=== PATIENT | female | born 1945 | race Caucasian/White ===

== ENCOUNTER 2024-11-11 14:11 | Emergency (ER) | payer BC, SELFPAY ==
--- NOTE | ~2024-11-11 | XR_ITS ---
CLINICAL HISTORY: confusion 1 view chest x-ray Comparison: None Findings: There is increase of bilateral interstitial lung markings. Mild opacity of the left lung base. Normal size heart. There is calcification of the aortic arch. No acute fracture. IMPRESSION: Mild atelectasis/infiltrate of the left lung base. This document has been electronically signed by: Marco Orta MD on 11/11/2024 20:21:40
--- NOTE | 2024-11-11 14:16 | ED_ITS ---
HPI - General Adult General Chief complaint: Failure to Thrive Stated complaint: anxiety per ems Source: patient, EMS, RN notes reviewed and old records reviewed Mode of arrival: EMS Limitations: no limitations History of Present Illness ED Provider: Milady HPI narrative: Patient is a 79-year-old female with unknown past medical history presenting to the emergency department with complaint of severe anxiety since returning home from assisted living, unable to state where. Reports that she has been out of her medications but is unsure how to fill them. Tried calling [facility] but did not get any call back. States that she was under the impression that when she returned home she would have VNA services, states she has only had meals on wheels. Reports going outside to do yard work today which increased her anxiety. Feels she is unable to care for herself alone at home. Ambulates with walker at baseline. Denies suicidal or homicidal ideation, auditory or visual hallucinations. Denies any physical complaints. MD complaint: unable to care for self Onset (ago): day(s) Related Data Home Medications ?Medication ?Instructions ?Recorded ?Confirmed apixaban 5 mg tablet (Eliquis) 5 mg PO BID 11/11/24 11/12/24 aripiprazole 10 mg tablet 10 mg PO DAILY 11/11/24 11/12/24 atorvastatin 20 mg tablet 20 mg PO BEDTIME 11/11/24 11/12/24 digoxin 125 mcg (0.125 mg) tablet 125 mcg PO DAILY 11/11/24 11/12/24 diltiazem HCl 180 mg 360 mg PO DAILY 11/11/24 11/12/24 capsule,extended release 24 hr losartan 100 mg tablet 100 mg PO DAILY 11/11/24 11/12/24 pantoprazole 40 mg tablet,delayed 40 mg PO DAILY@0630 11/11/24 11/12/24 release acetaminophen 650 mg 1,300 mg PO BID PRN Pain 11/12/24 11/12/24 tablet,extended release melatonin 10 mg tablet 10 mg PO BEDTIME PRN Insomnia 11/12/24 11/12/24 Allergies Allergy/AdvReac Type Severity Reaction Status Date / Time insect venom [INSECT BITES] Allergy Unknown SWELLING Verified 11/11/24 14:25 Review of Systems 2 Review of Systems: As per HPI. Yes all other systems are reviewed and are negative Constitutional: Constitutional: Reports as per HPI Neurologic: Reports confusion Psychiatric: Psychiatric: Reports confusion ON LICENSE OF [facility] Social History Social History Alcohol intake: former Smoked in Last 30 Days: No Use of substances other than those prescribed or required for medical reasons: No Advance Directives: No Advance Directives Information Provided: Yes Physical Exam ED Vital Signs: Vital Signs - 24 hr 11/13/24 10:43 11/13/24 10:44 11/13/24 13:00 Temperature 97.6 F Pulse Rate 85 106 H Respiratory Rate 18 Blood Pressure 136/78 136/78 112/81 Pulse Oximetry 96 Oxygen Delivery Method Room Air 11/13/24 21:04 11/14/24 00:19 11/14/24 05:58 Temperature 97.6 F 97.6 F 98.0 F Pulse Rate 106 H 106 H 100 Respiratory Rate 16 16 16 Blood Pressure 117/59 L 117/59 L 107/57 L Pulse Oximetry 96 94 Oxygen Delivery Method Room Air Room Air BMI result Body Mass Index 30.0 Vital signs have been reviewed and appear to be correct. Blood pressure normal. Heart rate normal. Respiratory rate normal. Temperature normal. Oxygen saturation normal. Const General: cooperative, healthy appearing, no acute distress and confusion Orientation/consciousness: oriented to person, oriented to place, oriented to time, patient oriented x3 and confusion Limitations: altered mental status HENMT Head: Yes normocephalic and Yes atraumatic Ears: external ears normal General nose exam: Normal external nose present Face and sinus: Yes face symmetric Mouth: oropharynx normal and moist mucous membranes Throat: Yes uvula midline Eyes Pupils: Equal, round and reactive pupils present Neck Neck: Yes normal visual inspection and Yes supple Resp Effort & Inspection: normal respiratory effort and able to speak in complete sentences Auscultation: clear to auscultation bilaterally Cardio Rate: regular rate Rhythm: regular rhythm Heart sounds: S1 normal heart sound present and S2 normal heart sound present GI Palpation (GI): Soft to palpation and nontender Auscultation: normoactive bowel sounds General: Yes no CVA tenderness Back/Spine/Pelvis Back: no CVA tenderness Skin General skin exam: elasticity normal and turgor normal Neuro General: oriented to person, oriented to place, oriented to time, patient oriented x3, moves all extremities, no focal motor deficits, CN's II-XI intact bilaterally and confusion Cranial nerves: Yes Equal, round and reactive pupils present Extrem General: Yes full ROM, Yes no pedal edema and Yes no calf tenderness Psych Mental Status: mental status grossly normal Affect: normal affect Course Course Course Narrative: 11/14/24 09:34am Per Elly from , patient will be [place] [facility] [place] resumption of [facility]. Reevaluation(s) Reevaluation #1: Alexa Diaz PA-C ----> 2100 11/11/2024: Patient's UA was negative for any acute process. Patient's CXR showed a questionable infiltrate. Will start patient on Doxycycline for atypical coverage. Patient remains in observation pending physical therapy and case management consultations. Time: 21:00 Reevaluation #2: Dr. Jamarcus Arteaga's note at 22:06 hours: Patient was seen by case management. He was management is concerned that the patient has memory deficits and may not have competency to make decisions. The patient was at [facility] which was in assisted living program and she decided to leave this program and went back home. The patient's home and then cleaned out since she was hording. The patient has no family. The patient was 2 cell phones but can only call 911 with the cell phone since she was no cell phone policy. Patient initially came in complaining that she was not able to care for herself. Patient was waiting for a PT evaluation to determine if she needs acute rehab. I did order a psychiatry consult to help determine patient was competency while we are still trying sort out whether she needs rehab for physical therapy. Time: 22:06 Reevaluation #3: 11/12/2024 0631- should observation continued. No overnight events per nursing staff. Awaiting Psychiatry consultation to determine competency as well as PT eval. We will continue to monitor Additional Reevaluation(s): 11/13/24 0934-Physician observation continued. Uneventful night. Vital signs stable. No complaints from nursing overnight. Med reconciliation reviewed and done. Pending disposition. Will continue to monitor. Medications Administered Generic Name Dose Route Start Last Admin Trade Name Freq PRN Reason Stop Dose Admin Acetaminophen 650 mg 11/12/24 09:20 11/12/24 09:33 Acetaminophen 325 Mg Tablet PO 650 mg Q8H PRN Administration Pain, Mild 1-3,fever,headache Apixaban 5 mg 11/12/24 09:00 11/14/24 09:08 Apixaban 5 Mg Tablet PO 5 mg BID CHICA Administration Aripiprazole 10 mg 11/12/24 09:00 11/14/24 09:05 Aripiprazole 10 Mg Tablet PO 10 mg DAILY CHICA Administration Atorvastatin Calcium 20 mg 11/12/24 09:00 11/14/24 09:08 Atorvastatin Calcium 20 Mg Tablet PO 20 mg DAILY CHICA Administration Digoxin 0.125 mg 11/12/24 09:00 11/14/24 09:05 Digoxin 0.125 Mg Tablet PO 0.125 mg DAILY CHICA Administration Protocol Diltiazem HCl 180 mg 11/12/24 09:00 11/14/24 09:05 Diltiazem Hcl Cd 180 Mg Cap.Er.24h PO 180 mg DAILY CHICA Administration Protocol Doxycycline Monohydrate 100 mg 11/11/24 21:00 11/14/24 09:05 Doxycycline Monohydrate 100 Mg Capsule PO 100 mg BID CHICA Administration Losartan Potassium 100 mg 11/12/24 09:00 11/14/24 09:07 Losartan Potassium 50 Mg Tablet PO 100 mg DAILY [facility] Administration Protocol Melatonin 9 mg 11/12/24 12:45 11/13/24 20:57 Melatonin 3 Mg Tablet PO 9 mg BEDTIME PRN Administration Insomnia Omeprazole 20 mg 11/12/24 06:45 11/14/24 06:41 Omeprazole 20 Mg Capsule. PO 20 mg DAILY@0630 [facility] Administration Medical Decision Making Medical Decision Making [facility] Narrative: Patient is a 79-year-old female with unknown past medical history presenting to the emergency department with complaint of severe anxiety since returning home from assisted living, unable to state where. On exam patient is awake, A+Ox3, VS WNL, afebrile, normal neurological exam without focal deficits, physical exam findings as above. Given reported symptoms and physical exam findings, initial differential includes but is not limited to UTI, viral illness, electrolyte abnormality, failure to thrive. Labs notable for mild leukocytosis, elevated BUN with normal creatinine, mildly elevated LFTs. PT and case management consults ordered. UA and CXR pending. Patient placed on physician observation. Differential Diagnosis Differential Diagnoses: The differential diagnosis associated with the presentation includes as per [facility] Lab Data [facility] Lab Attestation statement: I reviewed the patient's lab results. as per [facility] 11/11/24 17:03 11/11/24 17:03 Labs: Lab Results 11/11/24 11/11/24 11/11/24 Range/Units 16:59 17:03 20:15 WBC 13.0 H (4.8-10.8) X10*3/uL RBC 4.64 (4.20-5.50) X10*6/uL Hgb 15.6 (12.0-16.0) g/dl Hct 43.7 (37.0-47.0) % MCV 94.2 (80.0-98.0) fL MCH 33.6 H (27.0-33.0) pg MCHC 35.7 H (31.0-35.0) g/dl RDW 12.8 (11.0-16.0) % Plt Count 188 (160-400) X10*3/uL MPV 10.2 (9.4-12.3) fL Immature Gran % (Auto) 0.5 H (0.0-0.4) % Neut % (Auto) 65.3 (45-73) % Lymph % (Auto) 24.3 (20-40) % [place] % (Auto) 8.0 (2-11) % Eos % (Auto) 1.3 (0-4) % Baso % (Auto) 0.6 (0-2) % Lymph # (Auto) 3.2 (1.2-4.9) X10*3/uL [place] # (Auto) 1.0 (0.1-1.2) X10*3/uL Eos # (Auto) 0.2 (0.0-0.4) X10*3/uL Baso # (Auto) 0.1 (0.0-0.2) X10*3/uL Abs Immat Gran (auto) 0.06 H (0.00-0.03) X10*3/uL Absolute Neuts (auto) 8.5 H (2.0-8.3) x10*3/uL Absolute Nucleated RBC 0.000 (0.0-0.012) X10*3/uL Nucleated RBC % (auto) 0.0 (0.0-0.2) /100WBC Sodium 143 (135-145) mmol/L Potassium 3.9 (3.3-5.1) mmol/L Chloride 105 (96-108) mmol/L Carbon Dioxide 27 (22-29) mmol/L Anion Gap 15 (12-20) BUN 24 H (9-16) mg/dL Creatinine 1.21 (0.5-1.4) mg/dL Estim Creat Clear Calc 38.4 Estimated GFR 43 Random Glucose 92 (60-115) mg/dL Calcium 9.7 (8.4-10.2) mg/dL Total Bilirubin 1.0 (0.0-1.0) mg/dL AST 70 H (5-31) U/L ALT 76 H (0-31) U/L Alkaline Phosphatase 94 (39-117) U/L Total Protein 7.5 (6.5-8.0) g/dL Albumin 4.3 (3.5-5.0) g/dL Urine Color Yellow Urine Appearance Clear Urine pH 5.5 (5.0-9.0) Ur Specific [place] 1.010 (1.005-1.025) Urine Protein 30 (1+) H (Neg-Trace) mg/dL Urine Glucose (UA) Negative (Negative) mg/dL Urine Ketones Negative (Negative) mg/dL Urine Blood Negative (Negative) Urine Nitrite Negative (Negative) Ur Leukocyte Esterase Negative (Negative) Urine RBC 0-2 (0-2) /HPF Urine WBC 0-5 (0-5) /HPF Ur Squamous Epith Cells 0-2 (0-2) /HPF Urine Bacteria None Seen (None Seen) Hyaline Casts 0-2 (0-2) /LPF Urine Opiates Screen Not Detected (Not Detect) Ur Buprenorphine Scrn Not Detected (Not Detect) ng/mL Ur Oxycodone Screen Not Detected (Not Detect) ng/mL Urine Methadone Screen Not Detected (Not Detect) ng/mL Urine Fentanyl Screen Not Detected (Not Detect) Ur Barbiturates Screen Not Detected (Not Detect) Ur Phencyclidine Scrn Not Detected (Not Detect) Ur Amphetamines Screen Not Detected (Not Detect) U Benzodiazepines Scrn Not Detected (Not Detect) Urine Cocaine Screen Not Detected (Not Detect) U Marijuana (THC) Screen Not Detected (Not Detect) Ethyl Alcohol < 10 mg/dL Influenza Type A (PCR) NEGATIVE (Negative) Influenza Type B (PCR) NEGATIVE (Negative) RSV RNA Qual (PCR) NEGATIVE (Negative) SARS-CoV-2 RNA (RT-PCR) NEGATIVE (Negative) External Record Review External record reviewed: Inpatient record, Office record and Outpatient record Discharge Plan Discharge Clinical Impression: Adult failure to thrive Patient Disposition: Home, Self-Care Additional Instructions: You are being discharged home with [facility]. Follow up with your primary care provider as needed. Return with any new or concerning symptoms. Prescriptions: No Action atorvastatin 20 mg tablet 20 mg PO BEDTIME diltiazem HCl 180 mg capsule,extended release 24hr 360 mg PO DAILY pantoprazole 40 mg tablet,delayed release (DR/EC) 40 mg PO DAILY@0630 digoxin 125 mcg (0.125 mg) tablet 125 mcg PO DAILY losartan 100 mg tablet 100 mg PO DAILY aripiprazole 10 mg tablet 10 mg PO DAILY Eliquis 5 mg tablet 5 mg PO BID acetaminophen [Tylenol Arthritis] 650 mg Tablet Extended Release 1,300 mg PO BID PRN (Reason: Pain) melatonin 10 mg Tablet 10 mg PO BEDTIME PRN (Reason: Insomnia) Referrals: [facility] [Outside] Print Language: Hungarian
[2024-11-11 14:22] VITALS: BP 126/60; BP 126/62; PULSE 68; PULSE 83; RESP 18; TEMP 36.6; O2SAT 100; O2SAT 95
--- OUTSIDE RECORDS SUMMARY | 2024-11-11 16:19 | XMS_ITS | Encounter Summary ---
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 verfication Social History Tobacco Use Types Packs/Day Years Used Date Smoking Tobacco: Never Smokeless Tobacco: Never Alcohol Use Standard Drinks/Week Comments No 0 (1 standard drink = 0.6 oz pur e alcohol) Comments Unknown Sex and Gender Information Value Date Recorded Sex Assigned at Not on file Legal Sex Female 1:53 PM EST Gender Identity Not on file Sexual Orientation Not on file documented as of this encounter Progress Notes * Tahira Duran - 09/19/2024 12:19 PM EST [place] calling to confirm dosage on the Metoprolol Tart 25 Mg 50 MG 1/2 tab daily increase is what they are asking about. Please confirm the dosage. documented in this encounter Plan of Treatment Not on file documented as of this encounter Visit Diagnoses Not on filedocumented in this encounter Care Teams Hog Dropper Relationship Specialty Start Date End Date Alan Shoemaker PA [address] [place], [place] [phone] PCP - General Internal Medicine 02/08/21 documented as of this encounter
--- OUTSIDE RECORDS SUMMARY | 2024-11-11 16:19 | XMS_ITS | Clinical Summary ---
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 01/07/20 24 Active diclofenac (VOLTAREN) 1 % topical gel Apply 4 g topically 4 times daily as needed for Other (arthritis pain). 11/02/19 24 Active lamoTRIgine (LaMICtal) 150 mg tablet Take 1 tablet (150 mg total) by mouth 1 (one) time each day. 08/11/20 23 Active busPIRone (BUSPAR) 15 mg tablet TAKE 1 TABLET BY MOUTH THREE TIMES DAILY 03/06/20 23 Active methylphenidat e (RITALIN) 5 mg tablet TAKE 2 TABLET BY MOUTH ONCE A DAY AND 1 TAB IN AFTERNOON NEEDED 06/09/20 22 Active EPINEPHrine (EpiPen 2-Dawson) 0.3 mg/0.3 mL injection Inject 1 Units as directed as needed for Other (anaphylaxis) . 04/12/20 21 Active aspirin 325 mg tablet Take 1 tablet (325 mg total) by mouth 1 (one) time each day. Active lamoTRIgine (LaMICtal) 200 mg tablet Take 200 mg by mouth daily. Active ondansetron (ZOFRAN) 4 mg tablet Take 1 tablet (4 mg total) by mouth every 8 (eight) hours if needed. 06/16/20 24 Active ARIPiprazole (ABILIFY) 10 mg tablet Take 1 tablet (10 mg total) by mouth 1 (one) time each day. 08/02/20 24 Active acetaminophen (Tylenol 8 Hour) 650 mg 8 hr tablet Take 2 tablets (1,300 mg total) by mouth 2 (two) times a day if needed for mild pain. Do not crush, chew, or split. 120 tablet 11 08/16/20 24 Active metoprolol tartrate (LOPRESSOR) 25 mg tablet Take 1 tablet (25 mg total) by mouth 2 (two) times a day. 180 tablet 09/08/19 25 Active melatonin 10 mg capsule Take 1 capsule (10 mg total) by mouth at bedtime as needed (insomnia). 30 capsule 09/08/19 25 Active atorvastatin (LIPITOR) 20 mg tablet Take 1 tablet (20 mg total) by mouth at bedtime. at bedtime. 90 tablet 09/08/19 25 Active digoxin (LANOXIN) 125 mcg (0.125 mg) tablet Take 1 tablet (125 mcg total) by mouth 1 (one) time each day. 90 tablet 09/08/19 25 Active dilTIAZem CD (CARDIZEM CD) 180 mg 24 hr capsule Take 2 capsules (360 mg total) by mouth 1 (one) time each day. 180 capsule 09/08/19 25 Active pantoprazole (PROTONIX) 40 mg EC tablet TAKE 1 TABLET BY MOUTH ONCE DAILY BEFORE BREAKFAST 30 tablet 10/20/19 25 Active Eliquis 5 mg tablet TAKE 1 TABLET BY MOUTH TWICE DAILY 60 tablet 10/20/19 25 Active losartan (COZAAR) 100 mg tablet TAKE 1 TABLET BY MOUTH DAILY. 30 tablet 10/20/19 25 Active pantoprazole (PROTONIX) 40 mg EC tablet Take 1 tablet (40 mg total) by mouth 1 (one) time each day before breakfast. 90 tablet 09/08/19 25 025 Discontinued Eliquis 5 mg tablet Take 1 tablet (5 mg total) by mouth 2 (two) times a day. 180 tablet 09/08/19 25 025 Discontinued losartan (COZAAR) 100 mg tablet Take 1 tablet (100 mg total) by mouth 1 (one) time each day. 90 tablet 09/08/19 25 025 Discontinued ciprofloxacin (CIPRO) 250 mg tablet Take 1 tablet (250 mg total) by mouth 2 (two) times a day for 5 days. 10 each 10/13/19 25 025 Active Problems Problem Noted Date Diagnosed Date Schizoaffective disorder 09/08/2024 Paroxysmal atrial fibrillation 09/08/2024 Weakness 09/08/2024 Obesity, unspecified 09/08/2024 Coronary artery disease due to lipid rich plaque 05/22/2023 Multiple thyroid nodules 05/13/2022 Carotid stenosis, asymptomatic, bilateral 2020 Overview (08/09/2024): 0-49% stenosis b/l internal carotid arteries Carotid atherosclerosis 04/12/2021 Retinal hemorrhage 11/17/2019 Osteoporosis 09/24/2018 Overview (08/09/2024): Started Fosamax July 2018 CKD (chronic kidney disease) stage 3, GFR 30-59 ml/min 07/21/2017 Elevated alkaline phosphatase level 08/23/2014 Overview (08/09/2024): Normal GGTP Dr. Colin 08/20 Plan for recheck in around 01/19 Incontinence of urine 08/10/2014 Overview (08/09/2024): Dr. Rosen Allergic rhinitis 05/30/2014 Fatty liver 05/30/2014 Overview (08/09/2024): Seen on usn 9/10 Trigger finger 05/30/2014 Overview (08/09/2024): 3rd left finger Vitamin D deficiency 05/30/2014 Bipolar disorder 05/05/2014 Depression 04/30/2014 DJD (degenerative joint disease) of knee 014 GERD (gastroesophageal reflux disease) 4 Overview (08/09/2024): 07/06/13 - upper GI with severe spontaneous GERD without esophageal stricture or mass HTN (hypertension) 04/30/2014 Hyperlipidemia 04/30/2014 Spinal stenosis 04/30/2014 Overview (08/09/2024): As per old records Dr. Alegria - 05/31/14 - osteoarthritis of knee and hip; low back pain; MRI than followup afterwards MRI lumbar spine - 06/05/14 - degenerative disc disease, central canal stenosis along with multilevel foraminal stenosis 06/27/14 - epidural steroid injection trial performed Encounters Date Type Department Care Team Description 11/04/2024 Telephone Adult Medicine [address] [phone] Alan Shoemaker PA faxed order (Faxed order received from [employer] A [id number] please sign and fax to [phone].) 11/03/2024 Billing Patient Not Present [address] [phone] Alan Shoemaker PA Schizoaffective disorder, unspecified type (CMS/HCC) (Primary Dx); Bipolar affective disorder, remission status unspecified (CMS/HCC); Paroxysmal atrial fibrillation (CMS/HCC); Primary hypertension; Obesity, unspecified class, unspecified obesity type, unspecified whether serious comorbidity present; Weakness 10/18/2024 9:45 AM EST Ancillary Procedure [facility] [address] [facility] [address] [place] [address] Carotid stenosis, asymptomatic, bilateral; Pure hypercholesterolemia; Routine general medical examination at a health care facility; Multiple thyroid nodules; Coronary artery disease due to lipid rich plaque; Carotid atherosclerosis, unspecified laterality; Osteoporosis, unspecified osteoporosis type, unspecified pathological fracture presence; Stage 3b chronic kidney disease (CKD) (CMS/HCC); Vitamin D deficiency; Primary hypertension; Bipolar affective disorder, remission status unspecified (CMS/HCC); Spinal stenosis of lumbar region without neurogenic claudication; Mixed hyperlipidemia; Depression, unspecified depression type; Fatty liver 10/11/2024 1:30 PM EST Office Visit Adult [address] [phone] Tomas Gruber MD Dysuria (Primary Dx); Urinary incontinence, unspecified type 09/26/[address] [phone] Alan Shoemaker PA LAB WORK 09/26/[address] [phone] Alan Shoemaker PA 09/19/[address] [phone] 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 09/08/2024 Billing Patient Not Present [address] [phone] Alan Shoemaker PA Schizoaffective disorder, unspecified type (CMS/HCC) (Primary Dx); Bipolar affective disorder, remission status unspecified (CMS/HCC); Paroxysmal atrial fibrillation (CMS/HCC); Primary hypertension; Weakness; Obesity, unspecified class, unspecified obesity type, unspecified whether serious comorbidity present 08/26/[address] [phone] [id number] 08/18/[address] [phone] Alan Shoemaker PA Medication Problem 08/16/2024 2:00 PM EST Office Visit Adult [address] [phone] Alan Shoemkaer PA Hospital discharge follow-up (Primary Dx); Sepsis due to pneumonia (CMS/HCC); Respiratory failure with hypoxia, unspecified chronicity (CMS/HCC); Atrial fibrillation, unspecified type (CMS/HCC); Coronary artery disease due to lipid rich plaque; Stage 3 chronic kidney disease, unspecified whether stage 3a or 3b CKD (CMS/HCC); Primary hypertension; Hyperlipidemia, unspecified hyperlipidemia type from Last 3 Months Immunizations Name Administration Dates Next Due Influenza Quadravalent, MDCK , 0.5ml, with preservative (Flucelvax) 6mo and older 05/29/2021 Influenza trivalent, 0.5mL ( Fluad) 65yo and older 06/20/2020,05/12/2019,06/13/2018,06/23,05/22/2016,06/13/2015 Influenza trivalent, with pr eservative (Fluzone; Afluria) 6mo and older 06/26/2014 Influenza, Unspecified 05/17/2019,06/13/2015 Pfizer (ages 12 & older) Biv alent, COVID-19 07/28/2022 Pfizer SARS-CoV-2 COVID-19, mRNA, LNP-S, preservative free 11/14/2020,10/17/2020 Pneumococcal conjugate 13 va lent (Prevnar 13, PCV13) 2mo and older 06/20/2021,09/13/2015 Pneumococcal polysaccharide 23 valent (Pneumovax 23) 2yo and older 07/24/2014,01/25/2009 TD, Adsorbed, Preservative Free 09/12/2009 Tdap Tetanus diptheria acell ular pertussis (Boostrix; Adacel) 7yo and older 07/24/2014 Zoster Live 12/22/2011,05/01/2009 Zoster recombinant (Shingrix ) 19yo and older 09/13/2019,07/04/2019 Surgical History Surgery Date Site/Laterality Comments OTHER SURGICAL HISTORY 01/24/2014 PROCEDURE: ---- OTHER ----; COMMENT: nuclear stress test with normal imaging CARPAL TUNNEL RELEASE Right PROCEDURE: HISTORICAL CARPAL TUNNEL REL OTHER SURGICAL HISTORY 02/06/2016 Bilateral PROCEDURE: WI ARTHRP ACETBLR/PROX FEM PROSTC AGRFT/ALGRFT; COMMENT: second in april 2016 OTHER SURGICAL HISTORY 11/04/13, 11/04/12 PROCEDURE: OUTSIDE PAP SMEAR; COMMENT: normal Medical History Medical History Date Comments HTN (hypertension) 04/30/2014 DX:HTN (hyper tension) GERD (gastroesophageal reflux disease) 04/30/2014 DX:GERD (gastroesophageal reflux disease) Spinal stenosis 04/30/2014 DX:Spinal stenos is Knee pain 04/30/2014 DX:Knee pain Hyperlipidemia 04/30/2014 DX:Hyperlipidemi a Depression 04/30/2014 DX:Depression Bipolar disorder (CMS/HCC) 05/05/2014 DX:Bi polar disorder (HCC) Osteoporosis 05/30/2014 DX:Osteoporosis Vitamin D deficiency 05/30/2014 DX:Vitamin D deficiency Allergic rhinitis 05/30/2014 DX:Allergic rh initis Fatty liver 05/30/2014 DX:Fatty liver; COMMENT: Seen on usn 05/17 Trigger finger 05/30/2014 DX:Trigger finge r; COMMENT: 3rd left finger Elevated alkaline phosphatase level 08/23/2014 DX:Elevated alkaline phosphatase level Family history of ovarian cancer 09/16/2014 DX:Family history of ovarian cancer; COMMENT: Pt BRCA negative 04/20 Family History Medical History Relation Name Comments Alzheimer's disease Aunt 1 Other: bone cancer Aunt 2 Breast cancer Aunt 3 paternal Other: ovarian cancer Aunt 4 matern al Relation Name Status Comments Aunt 1 Aunt 2 Aunt 3 Aunt 4 Father (Age 81) [place]; kidney issues Mother (Age 74) Stomach is brandie Social History Tobacco Use Types Packs/Day Years Used Date Smoking Tobacco: Never Smokeless Tobacco: Never Tobacco Cessation:Counseling Given: Not Answered Alcohol Use Standard Drinks/Week Comments No 0 (1 standard drink = 0.6 oz pur e alcohol) Comments No Sex and Gender Information Value Date Recorded Sex Assigned at Not on file Legal Sex Female 1:53 PM EST Gender Identity Not on file Sexual Orientation Not on file Obstetrics History Last Filed Vital Signs Vital Sign Reading Time Taken Comments Blood Pressure 124/60 10/11/2024 1:20 PM EST Pulse 86 10/11/2024 1:20 PM EST Temperature 35.9 ??C (96.6 ??F) 10/11/2024 1:20 PM ES T Respiratory Rate 20 10/11/2024 1:20 PM EST Oxygen Saturation - - Inhaled Oxygen Concentration - - Weight 79.4 kg (175 lb) 10/11/2024 1:20 PM EST Height 162.6 cm (5' 4 ) 10/11/2024 1:20 PM EST Body Mass Index 30.04 10/11/2024 1:20 PM EST Plan of Treatment Health Maintenance Due Date Last Done Comments Hepatitis A Vaccines (1 of 2 - Risk 2-dose series) 01/31/1964 Hepatitis B Vaccines (1 of 3 - Risk 3-dose series) 2005 Colorectal Cancer Screening: Stool Based Tests (FOBT/FIT) 08/16/2022 Social Influencers of Health Screening 08/16/2022 DTaP,Tdap,and Td Vaccines (2 - Td or Tdap) 07/24/2024 07/24/2014, 09/12/2009 Depression Screening 10/11/2025 10/11/2024 Falls Risk Assessment 10/11/2025 10/11/2024, 025 Hypertension/CHF/CAD Annual BMP Blood Test 10/11/2025 10/11/2024, 01/08/2024, 01/08/2024 Cholesterol Screening (Lipid Panel) 10/11/2029 10/11/2024, 01/08/2024, 01/08/2024 Osteoporosis Screening (Bone Density Screening) 10/28/2033 10/28/2023, 07/06/2018 Hepatitis C Screening Completed 03/20/2017 Zoster Vaccines Completed 09/13/2019, 06/08, 12/22/2011, Additional history exists Pneumococcal Vaccine: 50+ Years Completed 06/20/2021, 09/13/2015, 07/24/2014, Additional history exists RSV Immunization Patients 60+ Years Old Completed 09/28/2023 COVID-19 Vaccine Completed 06/01/2024, 12/2023, 07/28/2022, Additional history exists Influenza Vaccine Completed 06/01/2024, , 05/29/2021, Additional history exists HIB Vaccines Aged Out No longer eligi ble based on patient's age to complete this topic HPV Vaccines Aged Out No longer eligi ble based on patient's age to complete this topic IPV Vaccines Aged Out No longer eligi ble based on patient's age to complete this topic MMR Vaccines Aged Out No longer eligi ble based on patient's age to complete this topic Meningococcal ACWY Vaccine Aged Out N o longer eligible based on patient's age to complete this topic Meningococcal B Vacine Aged Out No lo nger eligible based on patient's age to complete this topic RSV Immunization Patients Under 20 months Aged Out No longer eligible based on patient's age to complete this topic Varicella Vaccines Aged Out No longer eligible based on patient's age to complete this topic Procedures Procedure Name Priority Date/Time Associated Diagnosis Comments VAS US DUPLEX CAROTID BILATERAL Routine 10/18/2024 10:02 AM EST Carotid stenosis, asymptomatic, bilateral Pure hypercholesterolemia Routine general medical examination at a health care facility Multiple thyroid nodules Coronary artery disease due to lipid rich plaque Carotid atherosclerosis, unspecified laterality Osteoporosis, unspecified osteoporosis type, unspecified pathological fracture presence Stage 3b chronic kidney disease (CKD) (CMS/HCC) Vitamin D deficiency Primary hypertension Bipolar affective disorder, remission status unspecified (CMS/HCC) Spinal stenosis of lumbar region without neurogenic claudication Mixed hyperlipidemia Depression, unspecified depression type Fatty liver CBC WITH AUTO DIFFERENTIAL Routine 10/11/2024 2:17 PM EST Hospital discharge follow-up Sepsis due to pneumonia (CMS/HCC) Respiratory failure with hypoxia, unspecified chronicity (CMS/HCC) Atrial fibrillation, unspecified type (CMS/HCC) Coronary artery disease due to lipid rich plaque Stage 3 chronic kidney disease, unspecified whether stage 3a or 3b CKD (CMS/HCC) Primary hypertension Hyperlipidemia, unspecified hyperlipidemia type URINALYSIS WITH REFLEX MICROSCOPIC Routine 10/11/2024 2:17 PM EST Hospital discharge follow-up Sepsis due to pneumonia (CMS/HCC) Respiratory failure with hypoxia, unspecified chronicity (CMS/HCC) Atrial fibrillation, unspecified type (CMS/HCC) Coronary artery disease due to lipid rich plaque Stage 3 chronic kidney disease, unspecified whether stage 3a or 3b CKD (CMS/HCC) Primary hypertension Hyperlipidemia, unspecified hyperlipidemia type LIPID PANEL WITH REFLEX TO DIRECT LDL Routine 10/11/2024 2:17 PM EST Hospital discharge follow-up Sepsis due to pneumonia (CMS/HCC) Respiratory failure with hypoxia, unspecified chronicity (CMS/HCC) Atrial fibrillation, unspecified type (CMS/HCC) Coronary artery disease due to lipid rich plaque Stage 3 chronic kidney disease, unspecified whether stage 3a or 3b CKD (CMS/HCC) Primary hypertension Hyperlipidemia, unspecified hyperlipidemia type COMPREHENSIVE METABOLIC PANEL Routine 10/11/2024 2:17 PM EST Hospital discharge follow-up Sepsis due to pneumonia (CMS/HCC) Respiratory failure with hypoxia, unspecified chronicity (CMS/HCC) Atrial fibrillation, unspecified type (CMS/HCC) Coronary artery disease due to lipid rich plaque Stage 3 chronic kidney disease, unspecified whether stage 3a or 3b CKD (CMS/HCC) Primary hypertension Hyperlipidemia, unspecified hyperlipidemia type CBC AND DIFFERENTIAL Routine 10/11/2024 2:17 PM EST Hospital discharge follow-up Sepsis due to pneumonia (CMS/HCC) Respiratory failure with hypoxia, unspecified chronicity (CMS/HCC) Atrial fibrillation, unspecified type (CMS/HCC) Coronary artery disease due to lipid rich plaque Stage 3 chronic kidney disease, unspecified whether stage 3a or 3b CKD (CMS/HCC) Primary hypertension Hyperlipidemia, unspecified hyperlipidemia type URINALYSIS WITH REFLEX MICROSCOPIC Routine 10/11/2024 2:17 PM EST Hospital discharge follow-up Sepsis due to pneumonia (CMS/HCC) Respiratory failure with hypoxia, unspecified chronicity (CMS/HCC) Atrial fibrillation, unspecified type (CMS/HCC) Coronary artery disease due to lipid rich plaque Stage 3 chronic kidney disease, unspecified whether stage 3a or 3b CKD (CMS/HCC) Primary hypertension Hyperlipidemia, unspecified hyperlipidemia type CULTURE BLOOD Routine 10/11/2024 2:17 PM EST Dysuria Hospital discharge follow-up Sepsis due to pneumonia (CMS/HCC) Respiratory failure with hypoxia, unspecified chronicity (CMS/HCC) Atrial fibrillation, unspecified type (CMS/HCC) Coronary artery disease due to lipid rich plaque Stage 3 chronic kidney disease, unspecified whether stage 3a or 3b CKD (CMS/HCC) Primary hypertension Hyperlipidemia, unspecified hyperlipidemia type CULTURE URINE Routine 10/11/2024 2:17 PM EST Hospital discharge follow-up Sepsis due to pneumonia (CMS/HCC) Respiratory failure with hypoxia, unspecified chronicity (CMS/HCC) Atrial fibrillation, unspecified type (CMS/HCC) Coronary artery disease due to lipid rich plaque Stage 3 chronic kidney disease, unspecified whether stage 3a or 3b CKD (CMS/HCC) Primary hypertension Hyperlipidemia, unspecified hyperlipidemia type DXA BONE DENSITY STUDY 1+ SITS AXIAL SKEL Routine 10/28/2023 11:32 AM EST Atherosclerotic heart disease of [place] coronary artery without angina pectoris Coronary atherosclerosis due to lipid rich plaque (CODE) Essential (primary) hypertension Occlusion and stenosis of unspecified carotid artery Occlusion and stenosis of bilateral carotid arteries Mixed hyperlipidemia Vitamin D deficiency, unspecified Chronic kidney disease, stage 3b (CMS/HCC) Nontoxic multinodular goiter Age-related osteoporosis without current pathological fracture HEPATITIS C SCREENING Routine 03/20/2017 from Last 3 Months or Most Recently Relevant to Health Maintenance Results * Vascular US duplex carotid bilateral (10/18/2024 10:02 AM EST) Left CCA dist villa 11 cm/s CV VAS LAB Left CCA dist sys 86 cm/s CV VAS LAB LEFT COMMON CAROTID ARTERY MID D 11 cm/s CV VAS LAB LEFT COMMON CAROTID ARTERY MID S 84 cm/s CV VAS LAB Left CCA prox villa 9 cm/s CV VAS LAB Left CCA prox sys 116 cm/s CV VAS LAB LEFT EXTERNAL CAROTID ARTERY D 10 cm/s CV VAS LAB Left ECA sys 106 cm/s CV VAS LAB Left ICA/CCA sys 0.90 no units CV VAS LAB Left ICA dist villa 12 cm/s CV VAS LAB Left ICA dist sys 72 cm/s CV VAS LAB Left ICA mid villa 15 cm/s CV VAS LAB Left ICA mid sys 70 cm/s CV VAS LAB Left ICA prox villa 16 cm/s CV VAS LAB Left ICA prox sys 75 cm/s CV VAS LAB Left vertebral sys 55 cm/s CV VAS LAB Right CCA dist villa 15 cm/s CV VAS LAB Right cca dist sys 90 cm/s CV VAS LAB RIGHT COMMON CAROTID ARTERY MID D 15 cm/s CV VAS LAB RIGHT COMMON CAROTID ARTERY MID S 90 cm/s CV VAS LAB Right CCA prox villa 15 cm/s CV VAS LAB Right CCA prox sys 92 cm/s CV VAS LAB RIGHT EXTERNAL CAROTID ARTERY D 16 cm/s CV VAS LAB Right eca sys 106 cm/s CV VAS LAB Right ICA/CCA sys 0.90 no units CV VAS LAB Right ICA dist villa 18 cm/s CV VAS LAB Right ICA dist sys 77 cm/s CV VAS LAB Right ICA mid villa 18 cm/s CV VAS LAB Right ICA mid sys 74 cm/s CV VAS LAB Right ICA prox villa 18 cm/s CV VAS LAB Right ICA prox sys 79 cm/s CV VAS LAB Right vertebral sys 70 cm/s CV VAS LAB Left Prox Subclavian PSV 177 cm/s CV VAS LAB Right Prox Subclavian PSV 165 cm/s CV VAS LAB Anatomical Region Laterality Modality Vascular, Abdomen Ultrasound Narrative 10/18/2024 5:15 PM EST Right Minimal plaques in the right ICA with no significant stenosis. Normal flow velocity and waveform in the right subclavian artery and right vertebral artery. Left Minimal plaques in the left ICA with no significant stenosis. Normal flow velocity and waveform in the left subclavian artery and left vertebral artery. Right Carotid The CCA has minimal heterogeneous plaque. The ICA has minimal heterogeneous plaque. The ECA has minimal heterogeneous plaque. The vertebral artery was not well visualized. Rt = 123/82 Lt= 120/74 Vertebral flow is antegrade. Left Carotid The CCA has minimal heterogeneous plaque. The ICA has minimal heterogeneous plaque. The ECA has minimal heterogeneous plaque. Vertebral flow is antegrade. [address] Magistrate Details A meza scale, color and doppler analysis ultrasound was performed. During the study longitudinal and transverse views were obtained. Pulsed wave doppler was performed. Overall the study quality was adequate. us Alan ELIZABETH CV VASCULAR PROCEDURES Fi nal Result * (ABNORMAL) Urinalysis with reflex microscopic (10/11/2024 2:17 PM EST) Pathologist [facility] Specific [place] Urine 1.018 1.003 - 1.030 LAB URINALYSIS - AUTOMATED METHOD 10/11/2024 6:31 PM [facility] pH, Urine 5.5 5.0 - 8.0 pH LAB URINALYSIS - AUTOMATED METHOD 10/11/2024 6:31 PM [facility] Leukocytes, Urine Small(A) Negative LAB URINALYSIS - AUTOMATED METHOD 10/11/2024 6:31 PM [facility] Nitrite, Urine Negative Negative LAB URINALYSIS - AUTOMATED METHOD 10/11/2024 6:31 PM [facility] Protein, Urine Negative <=Trace mg/dL LAB URINALYSIS - AUTOMATED METHOD 10/11/2024 6:31 PM [facility] Glucose, Urine Negative Negative mg/dL LAB URINALYSIS - AUTOMATED METHOD 10/11/2024 6:31 PM [facility] Ketones, Urine Trace(A) Negative mg/dL LAB URINALYSIS - AUTOMATED METHOD 10/11/2024 6:31 PM [facility] Urobilinogen , Urine 0.2 0.2 - 1.0 mg/dL LAB URINALYSIS - AUTOMATED METHOD 10/11/2024 6:31 PM [facility] Bilirubin, Urine Negative Negative LAB URINALYSIS - AUTOMATED METHOD 10/11/2024 6:31 PM [facility] Blood, Urine Negative Negative LAB URINALYSIS - AUTOMATED METHOD 10/11/2024 6:31 PM [facility] RBC, Urine 4.0 0 - 4 /HPF LAB URINALYSIS - AUTOMATED METHOD 10/11/2024 6:31 PM [facility] WBC, Urine 23.2(H) 0 - 4 /HPF LAB URINALYSIS - AUTOMATED METHOD 10/11/2024 6:31 PM [facility] Squamous Epithelial, Urine 40 0 - 60 /LPF LAB URINALYSIS - AUTOMATED METHOD 10/11/2024 6:31 PM [facility] Bacteria, Urine Moderate(A) Negative /HPF LAB URINALYSIS - AUTOMATED METHOD 10/11/2024 6:31 PM [facility] Hyaline Casts, Urine 1.2 0 - 3 /LPF LAB URINALYSIS - AUTOMATED METHOD 10/11/2024 6:31 PM [facility] Urine Urine specimen obtained by clean catch procedure / Unknown Non-blood Collection / Unknown 10/11/2024 2:17 PM EST 10/11/2024 2:17 PM EST us Alan ELIZABETH LAB URINE ORDERABLES Mindy l Result [facility] [address] [place] [address], [place] [phone] * (ABNORMAL) Lipid panel with reflex to direct LDL (10/11/2024 2:17 PM EST) [facility] Cholesterol 123 0 - 200 mg/dL LAB CHEMISTRY METHOD 10/11/2024 5:01 PM EST [facility] Triglycerides 391(H) 0 - 150 mg/dL LAB CHEMISTRY METHOD 10/11/2024 5:01 PM [facility] HDL 36(L) >=40 mg/dL LAB CHEMISTRY METHOD 10/11/2024 5:01 PM [facility] LDL Calculated 9 0 - 100 mg/dL LAB CHEMISTRY METHOD 10/11/2024 5:01 PM [facility] VLDL Cholesterol Armando 78.2 mg/dL LAB CHEMISTRY METHOD 10/11/2024 5:01 PM [facility] Non HDL Chol. (LDL+VLDL) 87 <145 mg/dL LAB CHEMISTRY METHOD 10/11/2024 5:01 PM EST [facility] Chol/HDL Ratio 3.4 0.0 - 4.4 LAB CHEMISTRY METHOD 10/11/2024 5:01 PM [facility] Blood Venous blood specimen / Unknown Venipuncture / Unknown 10/11/2024 2:17 PM EST 10/11/2024 2:17 PM EST Alan ELIZABETH LAB BLOOD ORDERABLES Mindy l Result [facility] [address] [place] [address], [place] [phone] * (ABNORMAL) CBC auto differential (10/11/2024 2:17 PM EST) [facility] WBC 9.9 4.8 - 10.8 K/mcL LAB HEMETOLOGY METHOD 10/11/2024 4:40 PM [facility] RBC 4.60 3.80 - 4.80 M/mcL LAB HEMETOLOGY METHOD 10/11/2024 4:40 PM [facility] Hemoglobin 15.0 11.5 - 16.0 g/dL LAB HEMETOLOGY METHOD 10/11/2024 4:40 PM [facility] Hematocrit 44.4 35.0 - 47.0 % LAB HEMETOLOGY METHOD 10/11/2024 4:40 PM [facility] MCV 97.4 79.0 - 98.0 FL LAB HEMETOLOGY METHOD 10/11/2024 4:40 PM [facility] MCH 32.9(H) 27.0 - 32.0 pcg LAB HEMETOLOGY METHOD 10/11/2024 4:40 PM [facility] MCHC 33.8 32.0 - 37.0 g/dL LAB HEMETOLOGY METHOD 10/11/2024 4:40 PM [facility] RDW 13.5 11.0 - 15.0 % LAB HEMETOLOGY METHOD 10/11/2024 4:40 PM [facility] Platelets 208 130 - 400 K/mcL LAB HEMETOLOGY METHOD 10/11/2024 4:40 PM [facility] MPV 11.5(H) 7.0 - 11.0 FL LAB HEMETOLOGY METHOD 10/11/2024 4:40 PM [facility] NRBC 0.0 <1.0 % LAB HEMETOLOGY METHOD 10/11/2024 4:40 PM [facility] NRBC Absolute 0.00 <0.10 K/mcL LAB HEMETOLOGY METHOD 10/11/2024 4:40 PM [facility] Neutrophils Relative 55.3 % LAB HEMETOLOGY METHOD 10/11/2024 4:40 PM [facility] Lymphocytes Relative 32.3 % LAB HEMETOLOGY METHOD 10/11/2024 4:40 PM [facility] Monocytes Relative 9.3 % LAB HEMETOLOGY METHOD 10/11/2024 4:40 PM [facility] Eosinophils Relative 2.3 % LAB HEMETOLOGY METHOD 10/11/2024 4:40 PM [facility] Basophils Relative 0.5 % LAB HEMETOLOGY METHOD 10/11/2024 4:40 PM [facility] Immature Granulocytes Relative 0.3 % LAB HEMETOLOGY METHOD 10/11/2024 4:40 PM [facility] Neutrophils Absolute 5.49 1.50 - 7.00 K/mcL LAB HEMETOLOGY METHOD 10/11/2024 4:40 PM [facility] Lymphocytes Absolute 3.20 1.00 - 5.00 K/mcL LAB HEMETOLOGY METHOD 10/11/2024 4:40 PM [facility] Monocytes Absolute 0.92 0.20 - 1.00 K/mcL LAB HEMETOLOGY METHOD 10/11/2024 4:40 PM [facility] Eosinophils Absolute 0.23 0.00 - 0.50 K/mcL LAB HEMETOLOGY METHOD 10/11/2024 4:40 PM [facility] Basophils Absolute 0.05 0.00 - 0.20 K/mcL LAB HEMETOLOGY METHOD 10/11/2024 4:40 PM [facility] Immature Granulocytes Absolute 0.03 0.00 - 0.03 K/mcL LAB HEMETOLOGY METHOD 10/11/2024 4:40 PM [facility] Blood Venous blood specimen / Unknown Venipuncture / Unknown 10/11/2024 2:17 PM EST 10/11/2024 2:17 PM EST Alan ELIZABETH LAB BLOOD ORDERABLES Mindy stearns Result [facility] [address] [place] [address], [place] [phone] * Culture blood (10/11/2024 2:17 PM EST) Culture, Blood No growth at 5 days LAB MICROBIOLOGY METHOD 10/16/2024 5:01 PM EST [facility] Blood Venous blood specimen / Unknown Venipuncture / Unknown 10/11/2024 2:17 PM EST 10/11/2024 3:13 PM EST Alan ELIZABETH LAB MICROBIOLOGY - GENERA L ORDERABLES Final Result Performing Organization Address [facility]/ZIP Co de Phone Number [facility] [address] [place] [address], * (ABNORMAL) Culture urine (10/11/2024 2:17 PM EST) Culture, Urine 10,000-49,000 CFU/mL Klebsiella pneumoniae ssp pneumoniae(A) ANA CRISTINA 10/13/2024 9:17 AM EST [facility] Comment: This is an edited result. Previous organism was Gram negative bacilli on 10/12/2024 at 0751 EST. Urine Urine specimen obtained by clean catch procedure / Unknown Non-blood Collection / Unknown 10/11/2024 2:17 PM EST 10/11/2024 2:17 PM EST Narrative [facility] - 10/13/2024 9:17 AM EST Normal skin/urogenital lon noted Organism Antibiotic Method Susceptibility Klebsiella pneumoniae ssp pneumoniae Amoxicillin/Clavulanate ANA CRISTINA 4 ug/ml: Susceptible Klebsiella pneumoniae ssp pneumoniae Ampicillin/Sulbactam ANA CRISTINA 4 ug/ml: Susceptible Klebsiella pneumoniae ssp pneumoniae Piperacillin/Tazobactam ANA CRISTINA <=4 ug/ml: Susceptible Klebsiella pneumoniae ssp pneumoniae Cefazolin (Urine) ANA CRISTINA 2 ug/ml: Susceptible Klebsiella pneumoniae ssp pneumoniae Cefoxitin ANA CRISTINA <=4 ug/ml: Susceptible Klebsiella pneumoniae ssp pneumoniae Ceftazidime ANA CRISTINA <=0.5 ug/ml: Susceptible Klebsiella pneumoniae ssp pneumoniae Ceftriaxone ANA CRISTINA <=0.25 ug/ml: Susceptible Klebsiella pneumoniae ssp pneumoniae Cefepime ANA CRISTINA <=0.12 ug/ml: Susceptible Klebsiella pneumoniae ssp pneumoniae Meropenem ANA CRISTINA <=0.25 ug/ml: Susceptible Klebsiella pneumoniae ssp pneumoniae Amikacin ANA CRISTINA <=1 ug/ml: Susceptible Klebsiella pneumoniae ssp pneumoniae Gentamicin ANA CRISTINA <=1 ug/ml: Susceptible Klebsiella pneumoniae ssp pneumoniae Ciprofloxacin ANA CRISTINA <=0.06 ug/ml: Susceptible Klebsiella pneumoniae ssp pneumoniae Levofloxacin ANA CRISTINA <=0.12 ug/ml: Susceptible Klebsiella pneumoniae ssp pneumoniae Nitrofurantoin ANA CRISTINA <=16 ug/ml: Susceptible Klebsiella pneumoniae ssp pneumoniae Trimethoprim/Sulfamethoxazo le ANA CRISTINA <=20 ug/ml: Susceptible Alan ELIZABETH LAB MICROBIOLOGY - GENERA L ORDERABLES Final Result [facility] [address] [place] [address], * (ABNORMAL) Comprehensive metabolic panel (10/11/2024 2:17 PM EST) Sodium 139 133 - 145 mmol/L LAB CHEMISTRY METHOD 10/11/2024 5:00 PM [facility] Potassium 4.2 3.5 - 5.5 mmol/L LAB CHEMISTRY METHOD 10/11/2024 5:00 PM [facility] Chloride 105 96 - 110 mmol/L LAB CHEMISTRY METHOD 10/11/2024 5:00 PM [facility] CO2 26 21 - 32 mmol/L LAB CHEMISTRY METHOD 10/11/2024 5:00 PM [facility] Anion Gap 8 3 - 11 LAB CHEMISTRY METHOD 10/11/2024 5:00 PM [facility] Glucose 120(H) 70 - 100 mg/dL LAB CHEMISTRY METHOD 10/11/2024 5:00 PM [facility] BUN 25 5 - 25 mg/dL LAB CHEMISTRY METHOD 10/11/2024 5:00 PM [facility] Creatinine 1.20(H) 0.50 - 1.10 mg/dL LAB CHEMISTRY METHOD 10/11/2024 5:00 PM [facility] eGFR 46(L) >=60 mL/min/1. 73m2 LAB CHEMISTRY METHOD 10/11/2024 5:00 PM [facility] Comment:Calculation based on the??Chronic Kidney Disease Epidemiology Collaboration (CKD-EPI) equation refit??without adjustment for race. BUN/Creatinine Ratio 20.8 LAB CHEMISTRY METHOD 10/11/2024 5:00 PM [facility] Calcium 9.8 8.5 - 10.5 mg/dL LAB CHEMISTRY METHOD 10/11/2024 5:00 PM [facility] AST (SGOT) 32 10 - 42 unit/L LAB CHEMISTRY METHOD 10/11/2024 5:00 PM [facility] ALT (SGPT) 51 10 - 60 unit/L LAB CHEMISTRY METHOD 10/11/2024 5:00 PM [facility] Alkaline Phosphatase 95 42 - 121 unit/L LAB CHEMISTRY METHOD 10/11/2024 5:00 PM [facility] Total Protein 7.1 6.0 - 8.0 g/dL LAB CHEMISTRY METHOD 10/11/2024 5:00 PM [facility] Albumin 3.9 3.2 - 5.0 g/dL LAB CHEMISTRY METHOD 10/11/2024 5:00 PM [facility] Total Bilirubin 0.5 0.0 - 1.4 mg/dL LAB CHEMISTRY METHOD 10/11/2024 5:00 PM [facility] Blood Venous blood specimen / Unknown Venipuncture / Unknown 10/11/2024 2:17 PM EST 10/11/2024 2:17 PM EST us Alan ELIZABETH LAB BLOOD ORDERABLES Mindy l Result [facility] [address] [place] [address], * DXA BONE DENSITY STUDY 1+ SITS AXIAL SKEL (10/28/2023 11:32 AM EST) Anatomical Region Laterality Modality Bone Densitometr y 05/22/2023 1:58 PM EDT Narrative 10/28/2023 7:36 PM EST BONE DENSITY SCAN (DEXA): FINDINGS: Lumbar Spine T-score is 5.0. ?? (SD relative to 20-29 y/o adult) Z-score is 7.6. ??(SD relative to age matched peers) This is considered normal by WHO criteria. Left Forearm T-score is -2.9. Z-score is 0.0. This is considered osteoporosis by WHO criteria. Comparison exam(s): 07/06/2018. ??14.5% increase in lumbar spine bone mineral density which is statistically significant at the 95% confidence level. ??No statistically significant change in left forearm bone mineral density. Lateral survey view of the thoracolumbar spine shows no significant compression deformities of the visualized vertebral elements. IMPRESSION: IMPRESSION: ?? Osteoporosis by WHO criteria. The [facility] Department of Internal Medicine recommends using National Osteoporosis Foundation (NOF) guidelines in treatment decisions related to osteoporosis. NOF guidelines suggest considering treatment for postmenopausal women and men aged 50 or older presenting with the following: History of hip or vertebral fracture. T-score = -2.5 (DXA) at the femoral neck, total hip, or spine, after appropriate evaluation to exclude secondary causes. Low bone mass (T-score between -1.0 and -2.5 at the femoral neck or spine) AND a 10-year probability of a hip fracture = 3% OR a 10-year probability of a major osteoporosis-related fracture = 20% based on the [place]-adapted WHO algorithm Please note that all treatment decisions require clinical judgment and consideration of individual patient factors, including patient preferences, co-morbidities, previous drug use, risk factors not captured in the FRAX model (e.g., frailty, falls, vitamin D deficiency, increased bone turnover, interval significant decline in bone density) and possible under- or over-estimation of fracture risk by FRAX. Optional alternative screening schedule based on leonila Acuña., [facility] September 25, 2011 for patients with osteopenia (based on hip BMD T-score) is as follows: * ??advanced osteopenia (T scores -2.00 to -2.49), BMD testing every year * ??moderate osteopenia (T scores -1.50 to -1.99), BMD testing every 5 years mild osteopenia or normal BMD (T scores -1.50 and higher), BMD testing every 15 years Procedure Note Vannessa Aburto MD - 04/25/2024 BONE DENSITY SCAN (DEXA): FINDINGS: Lumbar Spine T-score is 5.0. (SD relative to 20-29 y/o adult) Z-score is 7.6. (SD relative to age matched peers) This is considered normal by WHO criteria. Left Forearm T-score is -2.9. Z-score is 0.0. This is considered osteoporosis by WHO criteria. Comparison exam(s): 07/06/2018. 14.5% increase in lumbar spine bonemineral density which is statistically significant at the 95% confidence level. No statisticallysignificant change in left forearm bone mineral density. Lateral survey view of the thoracolumbar spine shows no significantcompression deformities of the visualized vertebral elements. IMPRESSION: IMPRESSION: Osteoporosis by WHO criteria. The [facility] Department of Internal Medicine recommendsusing National Osteoporosis Foundation (NOF) guidelines in treatment decisions related toosteoporosis. NOF guidelines suggest considering treatment for postmenopausal women and menaged 50 or older presenting with the following: History of hip or vertebral fracture. T-score = -2.5 (DXA) at the femoral neck, total hip, or spine, afterappropriate evaluation to exclude secondary causes. Low bone mass (T-score between -1.0 and -2.5 at the femoral neck or spine)AND a 10-year probability of a hip fracture = 3% OR a 10-year probability of a majorosteoporosis-related fracture = 20% based on the [place]-adapted WHO algorithm Please note that all treatment decisions require clinical judgment andconsideration of individual patient factors, including patient preferences, co- morbidities,previous drug use, risk factors not captured in the FRAX model (e.g., frailty, falls, vitaminD deficiency, increased bone turnover, interval significant decline in bone density) andpossible under- or over-estimation of fracture risk by FRAX. Optional alternative screening schedule based on quynh Acuña al., NEJMJanuary 2011 for patients with osteopenia (based on hip BMD T-score) is as follows: * advanced osteopenia (T scores -2.00 to -2.49), BMD testing every year * moderate osteopenia (T scores -1.50 to -1.99), BMD testing every 5years mild osteopenia or normal BMD (T scores -1.50 and higher), BMD testingevery 15 years Alan ELIZABETH IMAhmet DXA PROCEDURES Final Result * Hepatitis C Screening (03/20/2017) [facility] Hepatitis C Screening abstracted Historical Provider MD HEALTH MAINTENANCE Final Result from Last 3 Months or Most Recently Relevant to Health Maintenance Insurance [facility] Care Teams Rectifying Operator Relationship Specialty Start Date End Date Alan Shoemaker PA [address] [facility] [place] [id number] PCP - General Internal Medicine 02/08/21
--- OUTSIDE RECORDS SUMMARY | 2024-11-11 16:19 | XMS_ITS | Continuity of Care Document ---
Author Organization [facility] Address [address] [place] [address]- Care Team Providers Care Space Control Supervisor Name Role Phone Not on Staff, PCP Primary Care Physician Unavail able Encounter [facility] NBR [id number] Date(s): 10/31/24 - 11/01/[address] [address]- Discharge Disposition: A-D/C Home Attending Physician: Sasha Salinas DO Admitting Physician: Sasha Salinas DO Referring Physician: Not on Staff, Referring MD Encounter Type: Disch ES Allergies, Adverse Reactions, Alerts Substance Criticality Severity Reaction Reaction Severity Status Bee Stings swelling Active Immunizations Given and Recorded Vaccine Date Status Refusal Reason SARS-CoV-2 (COVID-19) mRNA BNT-162b2 vac 11/13/20 Given SARS-CoV-2 (COVID-19) mRNA BNT-162b2 vac 10/23/20 Given tetanus/diphtheria/pertussis, acel(Tdap) 08/26/12 Given influenza virus vaccine, inactivated 1 08/10/12 Gi umm Pneumococcal Vacc (oldterm) 2 08/26/11 Given Zostavax (oldterm) 3 08/26/11 Given 1Admin Note: VIS Given Flulaval 2Admin Note: per pt 3Admin Note: pharm Medications acyclovir 400 mg oral tablet = 400 mg, By Mouth, 3 times a day, 0 Refills, Maintenance, 04/01/24 12:29:00 PM EDT, Tablet, Partialfill upon patient request if the prescription is for a schedule II opioid drug. Start Date: 04/01/24 Status: Ordered Repeat number: 1 apixaban = 5 mg, By Mouth, 2 times a day, 0 Refills, Maintenance, 04/01/24 12:29:00 PM EDT, Tablet, Partial fill upon patient request if the prescription is for a schedule II opioid drug. Start Date: 04/01/24 Status: Ordered Repeat number: 1 atorvastatin 20 mg oral tablet 1 tablet = 20 mg, By Mouth, Daily, # 30 tablet, 0 Refills, Maintenance, 03/23/24 2:27:00 AM EDT, Tablet, Partial fill upon patient request if the prescription is for a schedule II opioid drug. Start Date: 03/23/24 Status: Ordered Quantity: 30.0 Unit: tablet Repeat number: 1 digoxin 0.125 mg oral tablet 0.125 mg, By Mouth, Daily in AM, Refills 0, Maintenance, 04/01/24 12:29:00 PM EDT, Partial fill uponpatient request if the prescription is for a schedule II opioid drug. Start Date: 04/01/24 Status: Ordered Repeat number: 1 diltiazem 180 mg/24 hours oral capsule, extended release 360 mg, By Mouth, Daily, Refills 0, Maintenance, 04/01/24 12:29:00 PM EDT, Partial fill upon patientrequest if the prescription is for a schedule II opioid drug. Start Date: 04/01/24 Status: Ordered Repeat number: 1 losartan 100 mg oral tablet 1 tablet = 100 mg, By Mouth, Daily, # 30 tablet, 0 Refills, Maintenance, 03/23/24 2:27:00 AM EDT, Tablet, Partial fill upon patient request if the prescription is for a schedule II opioid drug. Start Date: 03/23/24 Status: Ordered Quantity: 30.0 Unit: tablet Repeat number: 1 metoprolol 25 mg oral tablet 25 mg, By Mouth, 2 times a day, Refills 0, Maintenance, 04/01/24 12:29:00 PM EDT, Partial fill upon patient request if the prescription is for a schedule II opioid drug. Start Date: 04/01/24 Status: Ordered Repeat number: 1 pantoprazole 40 mg oral delayed release tablet = 40 mg, By Mouth, Daily, 0 Refills, Maintenance, 04/01/24 12:29:00 PM EDT, EC Tablet Start Date: 04/01/24 Status: Ordered Repeat number: 1 Problem List Condition Confirmation Course Effective Dates Status Health Status Informant Anxiety Confirmed Active Bipolar disorder 1, 2 Confirmed Active Colonoscopy 3 Confirmed Active Diverticulosis Confirmed Active Gastroesophageal reflux disease with hiatal hernia Confirmed Active Generalized OA Confirmed Active Hypercholesterolemia Confirmed Active Hypertension Confirmed Active Obese class I Confirmed Active Urinary incontinence Confirmed Active 1counseler-brennan 2psych-ronnie 3colo 2009 nl, repeat 2019 Results Radiology Reports * Exam Date Time Procedure Performing Provider Status 10/31/24 6:44 PM Chest 2 Views Frontal and Lat Swanat , Rema; Auth (Verified) Notes: (Chest 2 Views Frontal and Lat) Reason For Exam: Chest Pain;Other: RESULT: Chest 2 Views Frontal and Lat Chest 2 Views Frontal and Lat Hx of Present Illness: Pt arrived via EMS from SNF with MCO. Urinary pain and difficulty. Back pack. Pt with hx of AFIB.; Reason: Other:; Chest Pain; Clinical Question(s): Other: COMPARISON: 03/22/2024 FINDINGS: LINES AND TUBES: None. LUNGS AND PLEURA: Lungs are symmetrically aerated. There are bibasilar linear opacities likely representing atelectasis or scarring. No pleural effusion. No pneumothorax. HEART, MEDIASTINUM AND KIANNA: Heart is normal in size. Stable mild ectasia of the thoracic aorta. Normal hilar contours. BONES AND SOFT TISSUES: There are multilevel moderate to severe degenerative changes of the thoracic spine. No acute abnormality. IMPRESSION: Bibasilar atelectasis or scarring. No acute abnormality. WSN: [id number] Ordering Physician: Sasha Salinas Dictated By: Zunilda Thrasher MD Dictated Date/Time: 10/31/24 7:26 pm Reviewed By: Zunilda Thrasher MD Signed By: Zunilda Thrasher MD Signed Date/Time: 10/31/24 7:26 pm Transcribed By: TENZIN Transcribed Date/Time: 10/31/24 7:24 pm Vital Signs Most recent to oldest [Reference Range]: 1 2 3 Height 162 cm (11/01/24 1:27 AM) 162 cm (10/31/24 9:49 PM) 162 cm (10/31/24 6:23 PM) Weight 79.9 kg (11/01/24 1:27 AM) 79.9 kg (10/31/24 9:49 PM) 79.9 kg (10/31/24 6:23 PM) Oxygen Saturation [94-100 %] 96 % (11/01/24 1:27 AM) 95 % (10/31/24 9:49 PM) 95 % (10/31/24 6:23 PM) Pulse Rate [55-90 bpm] 99 bpm *H* (11/01/24 1:27 AM) 86 bpm (10/31/24 9:49 PM) 117 bpm *H* (10/31/24 6:23 PM) Body Mass Index [18.5-24.99 kg/m2] 30.45 kg/m2 *>HHI* (11/01/24 1:27 AM) 30.45 kg/m2 *>HHI* (10/31/24 9:49 PM) 30.45 kg/m2 *>HHI* (10/31/24 6:23 PM) Blood Pressure [90-138/55-84 mm Hg] 159/69mm Hg *H* (11/01/24 1:27 AM) 124/71mm Hg (10/31/24 9:49 PM) 140/67mm Hg *H* (10/31/24 6:23 PM) Respiratory Rate [16-30 br/min] 18 br/min (11/01/24 1:27 AM) 21 br/min (10/31/24 9:49 PM) 18 br/min (10/31/24 6:23 PM) Temperature [96.8-100.4 DegF] 97.8 DegF (11/01/24 1:27 AM) 98.1 DegF (10/31/24 6:23 PM) 98.9 DegF (10/31/24 6:03 PM) Mode of Delivery (Oxygen) Room air (11/01/24 1:27 AM) Room air (10/31/24 9:49 PM) Room air (10/31/24 6:23 PM) Blood pressure sites Arm, right (11/01/24 1:27 AM) Arm, right (10/31/24 9:49 PM) Arm, left (10/31/24 6:23 PM) Temperature Route Oral (11/01/24 1:27 AM) Oral (10/31/24 6:23 PM) Temporal (10/31/24 6:03 PM) Dry Weight 79.9 kg (11/01/24 1:27 AM) 79.9 kg (10/31/24 9:49 PM) 79.9 kg (10/31/24 6:23 PM) Weight Obtained Via Standing scale (10/31/24 6:03 PM) Dry Weight Obtained Via Standing scale (10/31/24 6:03 PM) Social History Social History Type Response Smoking Status Never (less than 100 in lifetime) entered on: 10/31/24 Sex Sex Representation Female (finding) EKG study * Event Display: ECG 12-Lead Authored Date: Please click on pdf link to open report * Event Display: ECG 12-Lead Authored Date: Ventricular Rate: 111 BPM Atrial Rate: 166 BPM QRS Duration: 80 ms Q-T Interval: 310 ms QTC Calculation(Bazett): 421 ms R [place]: 12 degrees T [place]: 224 degrees Atrial fibrillation with rapid ventricular response Anteroseptal infarct , age undetermined ST and T wave abnormality, consider inferolateral ischemia Abnormal ECG When compared with ECG of 26-Mar-2024 09:13, No significant change was found Confirmed by LEENA MIX MD ([id number]) on 11/01/2024 3:52:39 PM [place]: LEENA MIX MD Note * Sasha Salinas DO: PERFORM Event Display: Patient Education Leaflets Authored Date: [id number] Physical Therapy Referral ?? 250 ?? This page is FOR PRESCRIBERS Only, ? DO NOT GIVE TO THE PATIENT?? Physical Therapy Referral Program for Management of Pain In an effort to reduce narcotic use, some of our ED patients will benefit from a direct referral torehab care.?? [facility] will see INSURED patients and has a system in place to avoid sending follow up paperwork to the ED prescribers.? Note: Non-[facility] physical therapy services will probably NOT be able to handle ED generated PT referrals. ?? Patients should still follow up with their PCP as soon as possible regarding their ongoing care. Inform patients that [facility] will discuss insurance when they call.?? Some insurance plans limit the amount of PT a patient can receive each year. ?? Complete the FIRST PAGE of the patient???s referral sheet. [place] or write in diagnosis. M odify the timing for treatment, if needed. List any major precautions (i.e.?? Non-weight bearing limb), if needed. Sign, date and print your name at the bottom. ? Physical Therapy Referral Form Patient Instructions: You are being referred to physical therapy.?? This form is your referral and MUST be brought to your appointment. You need to call to set up your appointment. ?? This form can be used at any [facility] location.?? A list of locations is attached.?? 1)?? DIAGNOSIS/ICD-10 ([place] one) Cervicalgia: M54.2 ? Strain of muscle, fascia and tendon at neck level: S16.1XXD? Radiculopathy, cervical region: M54.12? Mid back pain: M54.9 ? Low back pain:?? M54.5 Strain of muscle, fascia and tendon of lower back: S39.012D Radiculopathy, lumbosacral region: M54.17 Other:? 2)? [? ]? Evaluate and Treat 2 Times/Week for 4 weeks as needed [? ]?Other: 3)? [? ]? No Precautions [? ]?Precautions: ?? I hereby certify these services as medically necessary for the patient???s plan of care. Physician???s Signature Date Physician Name (printed)? Locations You can call any location below.?? Tell them you were seen in a [facility] Emergency Department and have a referral form.?? Remember to bring your referral form with you to the appointment. NIECY Fierro [id number]? NIECY Muñoz [address] [address] [facility], [address]? [address] ? [place] [address]? NIECY Barragan [address] [place] [address]? [address] ? [place] [address]? [place] [address] ? [place] [address]? [facility] [address] ? Patient Care team information Care Team Personnel Name: Katelyn Ramriez Position: S RN Supv Member Role: Primary Care Nurse Name: Govind Jean RN Position: S RN Member Role: Primary Care Nurse Name: Cyrus Knox RN Position: S RN Member Role: Primary Care Nurse Name: Not on Staff, PCP Position: S Physician (General Medicine) Member Role: PCP Name: Harshad Young RN Position: S RN Member Role: Primary Care Nurse Name: Cyrus Yo RN Position: S RN Member Role: Primary Care Nurse Care Team Related Persons Name: GUIDO NGUYEN Name: ENRIQUE NGUYEN Name: MARLYN NGUYEN Insurance Providers Guarantor name: YOLANDA Health Plan Information #: 1 Payer: HMO [employer] Member Number: [id number] Policy Number: NA Group Number: [id number] Health Plan Information #: 2 Payer: HMO [employer] Member Number: [id number] Policy Number: NA Group Number: YOLANDA
--- OUTSIDE RECORDS SUMMARY | 2024-11-11 16:19 | XMS_ITS | Encounter Summary ---
Author Organization [facility] Address [address] [place] [address] Care Team Providers Care Dairy Nutrition Specialist Name Role Phone Alan Shoemaker Primary Care Provider [phone] Reason for Visit * Reason Onset Date Comments faxed order 11/04/2024 Faxed order rece ived from [facility] [id number] please sign and fax to [phone]. Encounter Details Date Type Department Care Team (Late st Contact Info) Description 11/04/2024 Telephone Adult Medicine [facility] [address] [place] [address] Alan Shoemaker PA [address] [place] [address], [place] [phone] faxed order (Faxed order received from [facility] [id number] please sign and fax to [phone].) Social History Tobacco Use Types Packs/Day Years [...] as of this encounter Progress Notes * Vee Salcedo MA - 11/10/2024 2:31 PM EST ORDER FAXED BACK ON 11/10/24 Via Right Fax documented in this encounter Plan of Treatment Not on file documented as of this encounter Visit Diagnoses Not on filedocumented in this encounter Additional Health Concerns Assessment Noted Time A fall risk assessment has been complete d for the patient 10/11/2024 1:29 PM EST documented as of this encounter Care Teams Dairy Nutrition Specialist Relationship Specialty Start Date End Date Alan Shoemaker PA [address] [place] [address] PCP - General Internal Medicine 02/08/21 documented as of this encounter
--- OUTSIDE RECORDS SUMMARY | 2024-11-11 16:19 | XMS_ITS | Encounter Summary ---
Author Organization [facility] Address [address] [place] [address] Care Team Providers Care Personal Secretary Name Role Phone Alan Shoemaker Primary Care Provider [phone] Reason for Visit * Reason Comments Home health cert Encounter Details Date Type Department Care Team (Late st Contact Info) Description 11/03/2024 Billing Patient Not Present Adult Medicine [facility] [address] [place] [address] Alan Shoemaker PA [address] [place], [place] Schizoaffective disorder, unspecified type (CMS/HCC) (Primary Dx); Bipolar affective disorder, remission status unspecified (CMS/HCC); Paroxysmal atrial fibrillation (CMS/HCC); Primary hypertension; Obesity, unspecified class, unspecified obesity type, unspecified whether serious comorbidity present; Weakness Social History Tobacco Use Types Packs/Day Years [...] Progress Notes * Vee Salcedo MA - 11/03/2024 8:42 AM EST Start of Care Date: 08/03/24 Date of certification period: 10/01/24-11/30/24 Date of service = signature date 10/30/24 Hospice patient: no Home Care Agency: [facility] Order faxed, entered and copy sent to scan documented in this encounter Plan of Treatment Not on file documented as of this encounter Visit Diagnoses Diagnosis Schizoaffective disorder, unspecified type (CMS/HCC)- Primary Bipolar affective disorder, remission status unspecified (CMS/HCC) Paroxysmal atrial fibrillation (CMS/HCC) Atrial fibrillation Primary hypertension Unspecified essential hypertension Obesity, unspecified class, unspecified obesity type, unspecified whether serious comorbidity present Weakness Other malaise and fatigue documented in this encounter Additional Health Concerns Assessment Noted Time A fall risk assessment has been complete d for the patient 10/11/2024 1:29 PM EST documented as of this encounter Care Teams Personal Secretary Relationship Specialty Start Date End Date Alan Shoemaker PA [address] [place] [address] PCP - General Internal Medicine 02/08/21 documented as of this encounter
--- OUTSIDE RECORDS SUMMARY | 2024-11-11 16:19 | XMS_ITS | Encounter Summary ---
Author Organization [facility] Address [address] [place] [address] Care Team Providers Care Loading Unit Tool Setter Name Role Phone Alan Shoemaker Primary Care Provider [phone] Encounter Details Date Type Department Care Team ([facility] st Contact Info) Description 09/26/2024 Telephone Adult Medicine [facility] [address] [place] [phone] Alan Shoemaker PA [address] [place], [place] Social History Tobacco Use Types Packs/Day Years [...] on file documented as of this encounter Plan of Treatment Not on file documented as of this encounter Visit Diagnoses Not on filedocumented in this encounter Care Teams Loading Unit Tool Setter Relationship Specialty Start Date End Date Alan Shoemaker PA [address] [place] [id number] PCP - General Internal Medicine 02/08/21 documented as of this encounter
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
--- OUTSIDE RECORDS SUMMARY | 2024-11-11 16:19 | XMS_ITS | Encounter Summary ---
Author Organization [facility] Address [address] [place] [address] Care Team Providers Care Medical Esthetician Name Role Phone Alan Shoemaker Primary Care Provider [phone] Reason for Visit * Imaging (Routine) - Closed Specialty Diagnoses / Procedures Referred By Contac t Referred To Contact Diagnoses Carotid stenosis, asymptomatic, bilateral Pure hypercholesterolemia Routine [...] hyperlipidemia Depression, unspecified depression type Fatty liver Procedures Vascular US duplex carotid bilateral Vascular US duplex carotid bilateral Alan Shoemaker PA Phone: tel: fax: [facility] Referral ID Status Reason Start Date Expiration Date Visits Re quested Visits Authorized [id number] Closed 06/26/2024 06/26/2025 1 1 Encounter Details Date Type Department Care Team (Latest Contact Info) Description 10/18/2024 9:45 AM EST Ancillary Procedure [facility] [address] [place] [address] Carotid stenosis, asymptomatic, bilateral; Pure hypercholesterolemia ; Routine general medical examination at a health [...] hyperlipidemia; Depression, unspecified depression type; Fatty liver Social History Tobacco Use Types Packs/Day Years [...] on file documented as of this encounter Procedures Procedure Name Priority Date/Time Associated Diagnosis Comments VAS US DUPLEX CAROTID BILATERAL Routine 10/18/2024 10:02 AM EST Carotid stenosis, asymptomatic, bilateral Pure hypercholesterolemia Routine general medical examination at a health care facility Multiple thyroid nodules Coronary artery disease due to lipid rich plaque Carotid atherosclerosis, unspecified laterality Osteoporosis, unspecified osteoporosis type, unspecified pathological fracture presence Stage 3b chronic kidney disease (CKD) ([facility]) Vitamin D deficiency Primary hypertension Bipolar affective disorder, remission status unspecified (CMS/HCC) Spinal stenosis of lumbar region without neurogenic claudication Mixed hyperlipidemia Depression, unspecified depression type Fatty liver documented in this encounter Results * Vascular US duplex carotid bilateral [...] minimal heterogeneous plaque. Vertebral flow is antegrade. Materials Development Engineer Details A meza scale, color and doppler analysis ultrasound was performed. During the study longitudinal and transverse views were obtained. Pulsed wave doppler was performed. Overall the study quality was adequate. us Alan ELIZABETH CV VASCULAR PROCEDURES Fi nal Result documented in this encounter Visit Diagnoses Diagnosis Carotid stenosis, asymptomatic, bilateral Pure hypercholesterolemia Routine general medical examination at a [facility] facility Multiple thyroid nodules Nontoxic multinodular goiter Coronary artery disease due to lipid rich plaque Carotid atherosclerosis, unspecified laterality Osteoporosis, unspecified osteoporosis type, unspecified pathological fracture presence Stage 3b chronic kidney disease (CKD) ([facility]) Vitamin D deficiency Primary hypertension Unspecified essential hypertension Bipolar affective disorder, remission status unspecified ([facility]) Spinal stenosis of lumbar region without neurogenic claudication Mixed hyperlipidemia Depression, unspecified depression type Fatty liver Other chronic nonalcoholic liver disease documented in this encounter Additional Health Concerns Assessment Noted Time A fall risk assessment has been complete d for the patient 10/11/2024 1:29 PM EST documented as of this encounter Care Teams Medical Esthetician Relationship Specialty Start Date End Date Alan Shoemaker PA [address] [place] [address] PCP - General Internal Medicine 02/08/21 documented as of this encounter
[2024-11-11 17:04] VITALS: BP 128/61; PULSE 72; RESP 20; TEMP 36.6; O2SAT 98
[2024-11-11 17:08] LABS: MANUAL DIFF FLAG NO
[2024-11-11 17:26] LABS: Alanine Aminotransferase 76 U/L (0-31); Albumin Level 4.3 g/dL (3.5-5.0); Alkaline Phosphatase 94 U/L (39-117); Anion Gap 15 (12-20); Aspartate Amino Transferase 70 U/L (5-31); Blood Urea Nitrogen 24 mg/dL (9-16); Calcium 9.7 mg/dL (8.4-10.2); Carbon Dioxide 27 mmol/L (22-29); Chloride 105 mmol/L (96-108); Creatinine Clr Calc Pharmacy 38.4; Estimated Glomerular Filt Rate 43; Ethanol < 10 mg/dL; Glucose Random 92 mg/dL (60-115); Potassium 3.9 mmol/L (3.3-5.1); Sodium 143 mmol/L (135-145); Total Protein 7.5 g/dL (6.5-8.0)
[2024-11-11 17:47] LABS: Influenza A PCR NEGATIVE (Negative); Influenza B PCR NEGATIVE (Negative); Resp Syncy Virus RNA Qual PCR NEGATIVE (Negative); SARS COV2 PCR INHOUSE NEGATIVE (Negative)
[2024-11-11 17:48] LABS: Basophils Absolute Auto 0.1 X10*3/uL (0.0-0.2); Basophils Percent Auto 0.6 % (0-2); Eosinophils Absolute Auto 0.2 X10*3/uL (0.0-0.4); Eosinophils Percent Auto 1.3 % (0-4); Hematocrit 43.7 % (37.0-47.0); Hemoglobin 15.6 g/dl (12.0-16.0); Imm Gran Abs Auto 0.06 X10*3/uL (0.00-0.03); Imm Gran Pct Auto 0.5 % (0.0-0.4); Lymphocytes Absolute Auto 3.2 X10*3/uL (1.2-4.9); Lymphocytes Percent Auto 24.3 % (20-40); Mean Corpuscular HGB Conc 35.7 g/dl (31.0-35.0); Mean Corpuscular Hemoglobin 33.6 pg (27.0-33.0); Mean Corpuscular Volume 94.2 fL (80.0-98.0); Mean Platelet Volume 10.2 fL (9.4-12.3); Neutrophils Absolute Auto 8.5 x10*3/uL (2.0-8.3); Neutrophils Percent Auto 65.3 % (45-73); Platelet Count 188 X10*3/uL (160-400); Red Blood Count 4.64 X10*6/uL (4.20-5.50); Red Cell Distribution Width 12.8 % (11.0-16.0)
--- NOTE | 2024-11-11 19:13 | PC.NURSE ---
Case management (Morenita Alejandre) at bedside speaking with patient.
[2024-11-11 20:24] LABS: Appearance Urine Clear; Color Urine Yellow; Glucose Urine UA Negative (Negative); Leukocyte Esterase Urine Negative (Negative); Nitrite Urine Negative (Negative); PH 5.5 (5.0-9.0); UMIC TRIGGER UACC YES; Urine Blood Negative (Negative); Urine Ketones Negative (Negative); Urine Protein 30 (1+) mg/dL (Neg-Trace)
[2024-11-11 20:28] LABS: Bacteria Urine None Seen (None Seen); Hyaline Casts Urine 0-2 /LPF (0-2); RBC Urine 0-2 /HPF (0-2); Squamous Epithelial Cell Urine 0-2 /HPF (0-2); WBC Urine 0-5 /HPF (0-5)
[2024-11-11 20:32] LABS: Amphetamine Screen Urine Not Detected (Not Detect); Barbiturates, Urine Not Detected (Not Detect); Benzodiazepines Screen Urine Not Detected (Not Detect); Buprenorphine Scr Not Detected (Not Detect); Cannabinoid Screen Urine Not Detected (Not Detect); Cocaine Screen Urine Not Detected (Not Detect); Fentanyl, urine Not Detected (Not Detect); Methadone Screen, Urine Not Detected (Not Detect); Opiate Screen Urine Not Detected (Not Detect); Oxycodone Screen Urine Not Detected (Not Detect); Phencyclidine Screen Urine Not Detected (Not Detect)
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
[2024-11-11] MEDS: Doxycycline Monohydrate 100 MG CAPSULE PO (21:55)
--- NOTE | 2024-11-11 21:59 | PC.NURSE ---
Pharmacist at bedside attempting to confirm/review medication reconciliation with the patient. Patient is unsure of some of her medications, describing them as the little white oval ones that I take at night . Morenita Alejandre (MARI[facility]) also aware of medication confusion, and generalized confusion. Patient is pleasant/cooperative/redirectable. Recently discharge (on 11/05/2024) from [facility], unable to care for self. Unsure if there is adequate food at home. Pt does not have reliable vehicle or other reliable personnel involved in her life.
--- NOTE | 2024-11-11 22:16 | PHA.MEDREC ---
Addendum entered by Aleksandr Kelsey 11/12/24 12:31: Called [facility] which were confirmed to be pt's primary pharmacy. Pt has not taken metoprolol tartrate since 2023, so left off med rec. Original Note: Pharmacy Consult ? Medication Reconciliation Pharmacy has completed the medication reconciliation. Spoke with patient at bedside, she doesn't know her medications by name really and just states she takes 4-5 pills in the morning and 2 white ovals at bedtime. Used fill history to confirm, and will leave a note to follow up with her assisted living facility to clarify what else we can in the morning.
[2024-11-11 23:23] VITALS: BP 137/63; PULSE 73; RESP 16; TEMP 36.7; O2SAT 96
[2024-11-11 23:55] VITALS: O2SAT 97
[2024-11-11 23:57] VITALS: BP 119/55; PULSE 67; RESP 19; TEMP 36.3; O2SAT 97
--- NOTE | 2024-11-12 00:16 | PC.NURSE ---
Assumed care of this patient at 00:10. Patient brought to overflow bed 1 from [facility]. Patient is alert and oriented x3, forgetful at times. VSS. Patient denies any pain at present. Patient assisted to restroom and back to her room , patient ambulates with a w/walker and requires supervision. Bed alarm engaged for safety. Patient oriented to overflow room, instructed in call [facility] use. Patient verbalized understanding. Patient currenly resting in hospital bed, watching TV, call [facility] in patient's reach. Plan of care ongoing.
--- NOTE | 2024-11-12 05:07 | PC.NURSE ---
Patient is awake, ambulated to the restroom and back to her room with assistance of a walker and supervision of 1 person. Gait is slow, but steady.
[2024-11-12 06:00] VITALS: BP 131/64; PULSE 77; RESP 18; TEMP 36.5; O2SAT 94
[2024-11-12] MEDS: Atorvastatin Calcium 20 MG TABLET PO (08:00)
[2024-11-12] MEDS: Omeprazole 20 MG CAPSULE.DR PO (08:00)
[2024-11-12] MEDS: Apixaban 5 MG TABLET PO ×2 (08:00→21:39)
[2024-11-12] MEDS: Losartan Potassium 50 MG TABLET 100 MG PO (08:00)
[2024-11-12] MEDS: dilTIAZem HCL CD 180 MG CAP.ER.24H PO (08:21)
[2024-11-12] MEDS: Doxycycline Monohydrate 100 MG CAPSULE PO ×2 (08:22→21:39)
[2024-11-12] MEDS: Digoxin 0.125 MG TABLET PO (08:22)
[2024-11-12] MEDS: ARIPiprazole 10 MG TABLET PO (08:22)
[2024-11-12] MEDS: Acetaminophen 325 MG TABLET 650 MG PO (09:33)
[2024-11-12 10:22] VITALS: BP 131/64; PULSE 77; O2SAT 94
[2024-11-12 14:57] VITALS: BP 125/63; PULSE 86; RESP 20; TEMP 36.4; O2SAT 96
--- NOTE | 2024-11-12 16:09 | MHC.CM.PN ---
PT evaluated pt, and are recommending home with services. This CM met with pt per her request, the pt reiterated to this entry writer what she said to previous CM. Pt stated she was sitting in a recliner at home for 4 days and no one came to help her. Pt states she has no connections to the outside world , and that she had an anxiety attack when she came to the hospital. Pt worried that hospital staff thinks she is a looney tune . Pt went on to say that she is disappointed in [facility] and leery of them as they were not helpful to her. Pt repetitive while speaking with this CM. This CM explained to pt that we are working on putting a plan in place for her to have more services at home. Psych eval for capacity pending.
[2024-11-12 18:32] VITALS: BP 152/70; PULSE 84; RESP 20; TEMP 36.4; O2SAT 95
--- NOTE | 2024-11-12 18:36 | PC.NURSE ---
pt requested telephone and to speak with someone regarding her discharge and how she is going to care for self outside of the hospital. CM informed and spoke w/ pt at bedside. Pt was given a cordless phone, afterwards stated she doesnt know anyones phone number and who to call.
--- NOTE | 2024-11-12 19:38 | PC.NURSE ---
pt A+Ox3, calm, pleasant. reoriented to situation and plan. denies SOB and pain, lungs CTA. pt LINTON, states needs are met at this time, able to independently repo in bed and sit up. walker at bedside for ambulation. call [facility] in reach.
[2024-11-12] MEDS: Melatonin 3 MG TABLET 9 MG PO (21:37)
[2024-11-12 23:17] VITALS: RESP 16
[2024-11-13] MEDS: Omeprazole 20 MG CAPSULE.DR PO (06:19)
[2024-11-13 06:24] VITALS: BP 142/72; PULSE 86; RESP 16; TEMP 36.4; O2SAT 96
[2024-11-13 10:43] VITALS: BP 136/78; PULSE 85
[2024-11-13] MEDS: Atorvastatin Calcium 20 MG TABLET PO (10:43)
[2024-11-13] MEDS: Apixaban 5 MG TABLET PO ×2 (10:43→20:55)
[2024-11-13] MEDS: Doxycycline Monohydrate 100 MG CAPSULE PO ×2 (10:43→20:55)
[2024-11-13] MEDS: Digoxin 0.125 MG TABLET PO (10:43)
[2024-11-13] MEDS: dilTIAZem HCL CD 180 MG CAP.ER.24H PO (10:43)
[2024-11-13 10:44] VITALS: BP 136/78
[2024-11-13] MEDS: Losartan Potassium 50 MG TABLET 100 MG PO (10:44)
[2024-11-13] MEDS: ARIPiprazole 10 MG TABLET PO (10:44)
--- NOTE | 2024-11-13 12:10 | P.CNPS_ITS ---
History of Present Illness Date of Service: Chief Complaint: anxiety per ems Reason for Consult: Anxiety Requesting physician: Jamarcus Arteaga Discussed with referring provider: No Sources of Information: patient interviewed and chart reviewed HPI Narrative: Patient is a 79-year-old female with unknown past medical history presenting to the emergency department with complaint of severe anxiety since returning home from assisted living, unable to state where. Reports that she has been out of her medications but is unsure how to fill them. Tried calling [facility] but did not get any call back. States that she was under the impression that when she returned home she would have VNA services, states she has only had meals on wheels. Reports going outside to do yard work today which increased her anxiety. Feels she is unable to care for herself alone at home. Ambulates with walker at baseline. Denies suicidal or homicidal ideation, auditory or visual hallucinations. Denies any physical complaints. MD complaint: unable to care for self. It appears that she was discharged home with aftercare and discharge planning that did not quite work out. She [place] in [place] [facility] or more recently the [facility] since last March after a bout of pneumonia and surgery. She has been on Abilify 10 mg for many years. She denies any clear-cut psychiatric history. No hospitalizations. 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 No suicidal history. She has been anxious but denies any panic attacks. 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 She is able to take care of some of her daily needs. She has been getting meals on wheels. She has not been getting her medications properly and that is also partly why she has been very anxious. 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 The discharge planning was not very secure or did not work out Substance History: Recovering alcoholic. Alcohol free for 7 or 8 years Trauma History: None Diagnostics Vital Signs (24Hr): Vital Signs - 24 hr 11/12/24 14:57 11/12/24 18:32 11/12/24 23:17 Temperature 97.6 F 97.5 F Pulse Rate 86 84 Respiratory Rate 20 20 16 Blood Pressure 125/63 152/70 H Pulse Oximetry 96 95 Oxygen Delivery Method Room Air Room Air 11/13/24 06:24 11/13/24 10:43 11/13/24 10:44 Temperature 97.6 F Pulse Rate 86 85 Respiratory Rate 16 Blood Pressure 142/72 H 136/78 136/78 Pulse Oximetry 96 Oxygen Delivery Method Room Air BMI result Body Mass Index 30.0 Labs 11/11/24 17:03 11/11/24 17:03 Labs: Laboratory Results - last 48 hr 11/11/24 11/11/24 11/11/24 16:59 17:03 20:15 WBC 13.0 H RBC 4.64 Hgb 15.6 Hct 43.7 MCV 94.2 MCH 33.6 H MCHC 35.7 H RDW 12.8 Plt Count 188 MPV 10.2 Immature Gran % (Auto) 0.5 H Neut % (Auto) 65.3 Lymph % (Auto) 24.3 [place] % (Auto) 8.0 Eos % (Auto) 1.3 Baso % (Auto) 0.6 Lymph # (Auto) 3.2 [place] # (Auto) 1.0 Eos # (Auto) 0.2 Baso # (Auto) 0.1 Abs Immat Gran (auto) 0.06 H Absolute Neuts (auto) 8.5 H Absolute Nucleated RBC 0.000 Nucleated RBC % (auto) 0.0 Sodium 143 Potassium 3.9 Chloride 105 Carbon Dioxide 27 Anion Gap 15 BUN 24 H Creatinine 1.21 Estim Creat Clear Calc 38.4 Estimated GFR 43 Random Glucose 92 Calcium 9.7 Total Bilirubin 1.0 AST 70 H ALT 76 H Alkaline Phosphatase 94 Total Protein 7.5 Albumin 4.3 Urine Color Yellow Urine Appearance Clear Urine pH 5.5 Ur Specific [place] 1.010 Urine Protein 30 (1+) H Urine Glucose (UA) Negative Urine Ketones Negative Urine Blood Negative Urine Nitrite Negative Ur Leukocyte Esterase Negative Urine RBC 0-2 Urine WBC 0-5 Ur Squamous Epith Cells 0-2 Urine Bacteria None Seen Hyaline Casts 0-2 Urine Opiates Screen Not Detected Ur Buprenorphine Scrn Not Detected Ur Oxycodone Screen Not Detected Urine Methadone Screen Not Detected Urine Fentanyl Screen Not Detected Ur Barbiturates Screen Not Detected Ur Phencyclidine Scrn Not Detected Ur Amphetamines Screen Not Detected U Benzodiazepines Scrn Not Detected Urine Cocaine Screen Not Detected U Marijuana (THC) Screen Not Detected Ethyl Alcohol < 10 Influenza Type A (PCR) NEGATIVE Influenza Type B (PCR) NEGATIVE RSV RNA Qual (PCR) NEGATIVE SARS-CoV-2 RNA (RT-PCR) NEGATIVE Mental Status Exam Mental Status Exam Narrative: In today's visit in the emergency room she is alert, oriented and pleasant. She was sitting at the side of her bed having her lunch. Speech is normal. Good eye contact. Affect is appropriate and varied. No overt signs of anxiety. No signs of psychosis. No AVH. No SI. Cognitively is intact. Judgment is intact Medications Medications Current Medications Acetaminophen (Acetaminophen 325 Mg Tablet) 650 mg PO Q8H PRN PRN Reason: Pain, Mild 1-3,fever,headache Last Admin: 11/12/24 09:33 Dose: 650 mg Apixaban (Apixaban 5 Mg Tablet) 5 mg PO BID [facility] Last Admin: 11/13/24 10:43 Dose: 5 mg Aripiprazole (Aripiprazole 10 Mg Tablet) 10 mg PO DAILY [facility] Last Admin: 11/13/24 10:44 Dose: 10 mg Atorvastatin Calcium (Atorvastatin Calcium 20 Mg Tablet) 20 mg PO DAILY [facility] Last Admin: 11/13/24 10:43 Dose: 20 mg Digoxin (Digoxin 0.125 Mg Tablet) 0.125 mg PO DAILY [facility]; Protocol Last Admin: 11/13/24 10:43 Dose: 0.125 mg Diltiazem HCl (Diltiazem Hcl Cd 180 Mg Cap.Er.24h) 180 mg PO DAILY [facility]; Protocol Last Admin: 11/13/24 10:43 Dose: 180 mg Doxycycline Monohydrate (Doxycycline Monohydrate 100 Mg Capsule) 100 mg PO BID [facility] Last Admin: 11/13/24 10:43 Dose: 100 mg Losartan Potassium (Losartan Potassium 50 Mg Tablet) 100 mg PO DAILY [facility]; Protocol Last Admin: 11/13/24 10:44 Dose: 100 mg Melatonin (Melatonin 3 Mg Tablet) 9 mg PO BEDTIME PRN PRN Reason: Insomnia Last Admin: 11/12/24 21:37 Dose: 9 mg Omeprazole (Omeprazole 20 Mg Capsule.) 20 mg PO DAILY@0630 [facility] Last Admin: 11/13/24 06:19 Dose: 20 mg Allergies Allergies Allergy/AdvReac Type Severity Reaction Status Date / Time insect venom [INSECT BITES] Allergy Unknown SWELLING Verified 11/11/24 14:25 Assessment & Plan Assessment & Plan (1) Adjustment disorder with anxiety: Status: Acute Code(s): F43.22 - Adjustment disorder with anxiety Plan In conclusion I do not see any acute psychiatric issues. Her anxiety has more to do with her being back home without a secure discharge planning that had been put in place but did not quite work out. Even though I do not know why she was put on Abilify I would keep her on it for the time being. No additional medications seems to be warranted. To involve social work to review the previously placed discharge planning would be prudent. Total time managing care of this patient today ____ minutes. Patient educated on: diagnosis and medication risk/benefits
[2024-11-13 13:00] VITALS: BP 112/81; PULSE 106; RESP 18; TEMP 36.4; O2SAT 96
--- NOTE | 2024-11-13 14:16 | PC.NURSE ---
pt A+Ox3, pleasantly resting in bed. Jean any pain or discomforts at this time. Is not SOB, lungs CTA. Able to slef repo in bed, and walker is at bedside for ambulation. call mcdermott in reach. Will continue to monitor.
--- NOTE | 2024-11-13 14:41 | MHC.CM.PN ---
This CM met with pt to discuss discharge disposition, she would like to return home with VNA services. VNA referral placed through [facility], awaiting an accepting agency.
[2024-11-13] MEDS: Melatonin 3 MG TABLET 9 MG PO (20:57)
[2024-11-13 21:04] VITALS: BP 117/59; PULSE 106; RESP 16; TEMP 36.4; O2SAT 96
[2024-11-14 00:19] VITALS: BP 117/59; PULSE 106; RESP 16; TEMP 36.4
[2024-11-14 05:58] VITALS: BP 107/57; PULSE 100; RESP 16; TEMP 36.7; O2SAT 94
[2024-11-14] MEDS: Omeprazole 20 MG CAPSULE.DR PO (06:41)
[2024-11-14] MEDS: Doxycycline Monohydrate 100 MG CAPSULE PO (09:05)
[2024-11-14] MEDS: dilTIAZem HCL CD 180 MG CAP.ER.24H PO (09:05)
[2024-11-14] MEDS: Digoxin 0.125 MG TABLET PO (09:05)
[2024-11-14] MEDS: ARIPiprazole 10 MG TABLET PO (09:05)
[2024-11-14] MEDS: Losartan Potassium 50 MG TABLET 100 MG PO (09:07)
[2024-11-14] MEDS: Atorvastatin Calcium 20 MG TABLET PO (09:08)
[2024-11-14] MEDS: Apixaban 5 MG TABLET PO (09:08)
--- NOTE | 2024-11-14 09:37 | MHC.CM.ED ---
Patient remains in ER overflow. Patient is active with [facility] for [facility]. [facility] has been asked to add intermediate. Met with patient in regards to discharge planning. Patient is agreeable to d/c plan. Patient feels she can safely use the [facility]. Shuttle booked for 11am. Patient will need to be in the main lobby at 1045am. Patient, Kalyani RN and [facility] aware. Continue to monitor for d/c needs.
[2024-11-14 11:24] VITALS: BP 129/78; PULSE 71; RESP 12; TEMP 36.8; O2SAT 99
== END 2024-11-14 11:26 | disposition home or self-care (01) ==
PROVIDERS: Registered Nurse Emergency; Emergency Provider Emergency Medicine; PCP Physician Assistant Medical
DX: R62.7 Adult failure to thrive (principal); Z68.30 Body mass index [BMI] 30.0-30.9, adult; Z79.01 Long term (current) use of anticoagulants; Z79.899 Other long term (current) drug therapy; Z03.818 Encounter for observation for suspected exposure to other biological agents ruled out
CPT/HCPCS: 0241U; 36415; 71045; 80053; 80307; 81001; 85025; 97162; 99285

== ENCOUNTER → 2024-11-11 14:29 | Outpatient (BNV) | payer BC, SELFPAY | PROVIDERS: Emergency Provider Emergency Medicine; PCP Physician Assistant Medical; Visit Provider Psychiatry & Neurology Psychiatry | DX: F43.22 Adjustment disorder with anxiety (principal) | CPT/HCPCS: 99282 ==

== ENCOUNTER → 2024-11-11 18:24 | Outpatient (BNV) | payer BC, SELFPAY | PROVIDERS: Emergency Provider Emergency Medicine; PCP Physician Assistant Medical; Visit Provider Nuclear Medicine | DX: R41.0 Disorientation, unspecified (principal) | CPT/HCPCS: 71045 ==

== ENCOUNTER 2024-11-16 09:17 | Emergency (ER) | payer BC, SELFPAY ==
[2024-11-16] VITALS (9 sets, daily range): BP systolic 120–210; BP diastolic 56–120; PULSE 81–106; RESP 12–18; TEMP 36.3–37.7; O2SAT 95–97; BMI 28.9
[2024-11-16 10:08] LABS: MANUAL DIFF FLAG NO
[2024-11-16 10:12] LABS: Basophils Absolute Auto 0.1 X10*3/uL (0.0-0.2); Basophils Percent Auto 0.6 % (0-2); Eosinophils Percent Auto 0.4 % (0-4); Hematocrit 42.9 % (37.0-47.0); Hemoglobin 15.3 g/dl (12.0-16.0); Imm Gran Abs Auto 0.03 X10*3/uL (0.00-0.03); Imm Gran Pct Auto 0.3 % (0.0-0.4); Lymphocytes Absolute Auto 1.9 X10*3/uL (1.2-4.9); Lymphocytes Percent Auto 18.4 % (20-40); Mean Corpuscular HGB Conc 35.7 g/dl (31.0-35.0); Mean Corpuscular Hemoglobin 33.3 pg (27.0-33.0); Mean Corpuscular Volume 93.5 fL (80.0-98.0); Monocytes Absolute Auto 0.9 X10*3/uL (0.1-1.2); Monocytes Percent Auto 8.3 % (2-11); Neutrophils Absolute Auto 7.6 x10*3/uL (2.0-8.3); Platelet Count 182 X10*3/uL (160-400); Red Blood Count 4.59 X10*6/uL (4.20-5.50); Red Cell Distribution Width 12.6 % (11.0-16.0); White Blood Count 10.5 X10*3/uL (4.8-10.8)
[2024-11-16 10:24] LABS: Alanine Aminotransferase 74 U/L (0-31); Alkaline Phosphatase 84 U/L (39-117); Anion Gap 15 (12-20); Aspartate Amino Transferase 51 U/L (5-31); Bilirubin Total 0.9 mg/dL (0.0-1.0); Blood Urea Nitrogen 35 mg/dL (9-16); Calcium 9.3 mg/dL (8.4-10.2); Carbon Dioxide 24 mmol/L (22-29); Chloride 107 mmol/L (96-108); Creatinine Clr Calc Pharmacy 28.5; Estimated Glomerular Filt Rate 31; Glucose Random 124 mg/dL (60-115); Potassium 3.8 mmol/L (3.3-5.1); Sodium 142 mmol/L (135-145); Total Protein 7.1 g/dL (6.5-8.0)
--- NOTE | 2024-11-16 10:35 | PC.NURSE ---
patient did not bring med list. attempted to call [facility], unable to get ahold of staff.
--- NOTE | 2024-11-16 10:44 | ED_ITS ---
HPI - General Adult General Chief complaint: General Medical Stated complaint: ANXIETY,TROUBLE LIVING INDEP S/P D/C FROM [facility] Time Seen by Provider: 11/16/24 09:31 History of Present Illness HPI narrative: Patient is a 79-year-old female recently discharged from assisted living. Patient has been feeling increasingly anxious. Has a history of anxiety. Normally takes her medication through a pill pack. Unfortunately she ran out after 4 days. 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 Patient denies any chest pain any diaphoresis feel very anxious called 911 she is also low on groceries. Has meals on wheels. No focal weakness. No history of heart attacks. History of adjustment disorder. Patient is on blood thinner per documentation. Related Data Home Medications ?Medication ?Instructions ?Recorded ?Confirmed apixaban 5 mg tablet (Eliquis) 5 mg PO BID 11/11/24 11/16/24 aripiprazole 10 mg tablet 10 mg PO DAILY 11/11/24 11/16/24 atorvastatin 20 mg tablet 20 mg PO BEDTIME 11/11/24 11/16/24 digoxin 125 mcg (0.125 mg) tablet 125 mcg PO DAILY 11/11/24 11/16/24 diltiazem HCl 180 mg 360 mg PO DAILY 11/11/24 11/16/24 capsule,extended release 24 hr losartan 100 mg tablet 100 mg PO DAILY 11/11/24 11/16/24 pantoprazole 40 mg tablet,delayed 40 mg PO DAILY@0630 11/11/24 11/16/24 release acetaminophen 650 mg 1,300 mg PO BID PRN Pain 11/12/24 11/16/24 tablet,extended release melatonin 10 mg tablet 10 mg PO BEDTIME PRN Insomnia 11/12/24 11/16/24 metoprolol tartrate 50 mg tablet 25 mg PO BID 11/16/24 11/16/24 Allergies Allergy/AdvReac Type Severity Reaction Status Date / Time insect venom [INSECT BITES] Allergy Unknown SWELLING Verified 11/16/24 09:32 Review of Systems 2 Review of Systems: positive anxiety PMFSH Past Medical History Attestation statement: The following information was validated with the patient. Social History Social History Alcohol intake: former Smoked in Last 30 Days: No Use of substances other than those prescribed or required for medical reasons: No Advance Directives: Yes Advance Directives on File: Yes Advance Directives Date on File: 11/14/24 Do you have a plan to hurt others: No Plan Physical Exam ED Vital Signs: Vital Signs - 24 hr 11/16/24 09:30 11/16/24 11:15 11/16/24 14:47 Temperature 97.4 F 99.9 F Pulse Rate 99 86 82 Respiratory Rate 12 16 14 Blood Pressure 141/73 H 125/62 120/72 Pulse Oximetry 96 97 95 Oxygen Delivery Method Room Air Room Air Room Air 11/16/24 15:13 Temperature 97.8 F Pulse Rate 106 H Respiratory Rate 16 Blood Pressure 132/70 Pulse Oximetry 96 Oxygen Delivery Method Room Air BMI result Body Mass Index 28.9 Appearance: Alert. Oriented X3. No acute distress. Eyes: Pupils equal, round and reactive to light. ENT: Pharynx normal. Neck: Normal inspection. Neck supple. No lymph nodes noted. No crepitus CVS: Normal heart rate and rhythm. Pulses normal. Normal S1 and S2 Respiratory: No respiratory distress. Breath sounds normal. No Wheezing. No rales Abdomen: Soft and nontender. No rigidity. No distention. good BS x4 Skin: Skin warm and dry. Normal skin color. Normal skin turgor. Extremities: No lower extremity edema. Neurovascular intact to all extremities. No Lacerations. No Rash Neuro: Oriented X 3. No motor deficit. No sensory deficit. Moving all extermities. No slurred speech Medications Administered Discontinued Medications Generic Name Dose Route Start Last Admin Trade Name Freq PRN Reason Stop Dose Admin Alprazolam 0.25 mg 11/16/24 10:32 11/16/24 10:57 Alprazolam 0.25 Mg Tablet PO 11/16/24 10:33 0.25 mg ONCE ONE Administration Medical Decision Making Medical Decision Making MDM Narrative: Well-appearing not acute distress. Patient out of her medication very stress because she is now living at home not getting enough help. Also patient needs help with grocery and with meals. We will get case management involved. Patient does not know her medication list. Will contact [facility] to get the proper medication. Currently in stable condition. Case management to help patient with details in additional care patient's case discussed with case management. Case management was able to discussed with patient. Patient wants to go back to assisted living. Additional approval needed. Patient will stay in the ED overnight. Will try to place patient back to the assisted living for increased level of care. Patient aware. Feels comfortable with plan. Differential Diagnosis Differential Diagnoses: The differential diagnosis associated with the presentation includes Anxiety, Admission/Observation Consideration of admission/observation: Escalation of care including admission/observation considered Consult Healthcare Provider Management of the patient was discussed with: Hedis Manager ( case management) Lab Data MDM Lab Attestation statement: I reviewed the patient's lab results. 11/16/24 10:04 11/16/24 10:04 Labs: Lab Results 11/16/24 Range/Units 10:04 WBC 10.5 (4.8-10.8) X10*3/uL RBC 4.59 (4.20-5.50) X10*6/uL Hgb 15.3 (12.0-16.0) g/dl Hct 42.9 (37.0-47.0) % MCV 93.5 (80.0-98.0) fL MCH 33.3 H (27.0-33.0) pg MCHC 35.7 H (31.0-35.0) g/dl RDW 12.6 (11.0-16.0) % Plt Count 182 (160-400) X10*3/uL MPV 10.0 (9.4-12.3) fL Immature Gran % (Auto) 0.3 (0.0-0.4) % Neut % (Auto) 72.0 (45-73) % Lymph % (Auto) 18.4 L (20-40) % [place] % (Auto) 8.3 (2-11) % Eos % (Auto) 0.4 (0-4) % Baso % (Auto) 0.6 (0-2) % Lymph # (Auto) 1.9 (1.2-4.9) X10*3/uL [place] # (Auto) 0.9 (0.1-1.2) X10*3/uL Eos # (Auto) 0.0 (0.0-0.4) X10*3/uL Baso # (Auto) 0.1 (0.0-0.2) X10*3/uL Abs Immat Gran (auto) 0.03 (0.00-0.03) X10*3/uL Absolute Neuts (auto) 7.6 (2.0-8.3) x10*3/uL Absolute Nucleated RBC 0.000 (0.0-0.012) X10*3/uL Nucleated RBC % (auto) 0.0 (0.0-0.2) /100WBC Sodium 142 (135-145) mmol/L Potassium 3.8 (3.3-5.1) mmol/L Chloride 107 (96-108) mmol/L Carbon Dioxide 24 (22-29) mmol/L Anion Gap 15 (12-20) BUN 35 H (9-16) mg/dL Creatinine 1.60 H (0.5-1.4) mg/dL Estim Creat Clear Calc 28.5 Estimated GFR 31 Random Glucose 124 H (60-115) mg/dL Calcium 9.3 (8.4-10.2) mg/dL Total Bilirubin 0.9 (0.0-1.0) mg/dL AST 51 H (5-31) U/L ALT 74 H (0-31) U/L Alkaline Phosphatase 84 (39-117) U/L Total Protein 7.1 (6.5-8.0) g/dL Albumin 4.0 (3.5-5.0) g/dL External Record Review External record reviewed: Inpatient record Social Determinants Patient?s care significantly limited by Social Determinants of Health including: Problems related to primary support group Discharge Plan Discharge Clinical Impression: Adjustment disorder with anxiety Patient Disposition: Still a Patient Instructions: Anxiety (ED) Prescriptions: No Action atorvastatin 20 mg tablet 20 mg PO BEDTIME diltiazem HCl 180 mg capsule,extended release 24hr 360 mg PO DAILY pantoprazole 40 mg tablet,delayed release (DR/EC) 40 mg PO DAILY@0630 digoxin 125 mcg (0.125 mg) tablet 125 mcg PO DAILY losartan 100 mg tablet 100 mg PO DAILY aripiprazole 10 mg tablet 10 mg PO DAILY Eliquis 5 mg tablet 5 mg PO BID acetaminophen [Tylenol Arthritis] 650 mg Tablet Extended Release 1,300 mg PO BID PRN (Reason: Pain) melatonin 10 mg Tablet 10 mg PO BEDTIME PRN (Reason: Insomnia) metoprolol tartrate 50 mg tablet 25 mg PO BID Print Language: Serbian
[2024-11-16] MEDS: ALPRAZolam 0.25 MG TABLET PO (10:57)
--- NOTE | 2024-11-16 11:16 | PHA.MEDREC ---
Addendum entered by Grzegorz Keith 11/16/24 11:34: reviewed Original Note: Pharmacy Consult ? Medication Reconciliation Pharmacy has completed the medication reconciliation.Patient is a poor historian. Called Teresa to get refill history. Utilized list fro Teresa to confirm med list.
--- OUTSIDE RECORDS SUMMARY | 2024-11-16 12:16 | XMS_ITS | Encounter Summary ---
Author Organization [facility] Address [address] [place] [address] Care Team Providers Care Pull Up Hand Name Role Phone Alan Shoemaker Primary Care Provider [phone] Reason for Visit * Reason Onset Date Comments faxed order 11/16/2024 [facility] ANTHONY [phone] Encounter Details Date Type Department Care Team ([facility] st Contact Info) Description 11/16/2024 Telephone Adult Medicine [facility] [address] [place] [address] Alan Shoemaker PA [address] [place] [address] faxed order ([employer] [id number]) Social History Tobacco Use Types Packs/Day Years [...] as of this encounter Progress Notes * Amy Lemon - 11/16/2024 11:15 AM EDT Faxed order received from [facility] [employer] [id number] please sign and fax to [phone]. documented in this encounter Plan of Treatment Not on file documented as of this encounter Visit Diagnoses Not on filedocumented in this encounter Additional Health Concerns Assessment Noted Time A fall risk assessment has been complete d for the patient 10/11/2024 1:29 PM EST documented as of this encounter Care Teams Pull Up Hand Relationship Specialty Start Date End Date Alan Shoemaker PA [address] [place] [address] PCP - General Internal Medicine 02/08/21 documented as of this encounter
--- OUTSIDE RECORDS SUMMARY | 2024-11-16 12:16 | XMS_ITS | Encounter Summary ---
Author Organization [facility] Address [address] [place] [address] Care Team Providers Care Cash Office Worker Name Role Phone Alan Shoemaker Primary Care Provider [phone] Reason for Visit * Reason Onset Date Comments VNA 11/14/2024 Encounter Details Date Type Department Care Team (Late st Contact Info) Description 11/14/2024 Telephone Adult Medicine [facility] [address], [place] [phone] Alan Shoemaker PA [address] [place] [address] VNA Social History Tobacco Use Types Packs/Day Years [...] as of this encounter Progress Notes * Juwan Velarde LPN - 11/15/2024 9:24 AM EDT VO left on (+ID) [facility] * CLARA Martinez - 11/14/2024 8:24 PM EDT OK for Verbal Order * Juwan Velarde LPN - 11/14/2024 5:03 PM EDT Last office visit 10/11/24 VNA is requesting VO for nursing. Please review and advise. Thank you Please send response to nurse triage [facility] Last OV 10/11/24 * Malik Camejo - 11/14/2024 4:53 PM EDT VNA CALL Which VNA office is calling? [facility] Full name of caller: Maude The caller is A nurse Is the caller at the patients home?: no Reason for call: VO for skill nursing for the patient. Does caller need an urgent call back? yes Was CONTACT Telephone # obtained above?: yes Fax #: documented in this encounter Plan of Treatment Not on file documented as of this encounter Visit Diagnoses Not on filedocumented in this encounter Additional Health Concerns Assessment Noted Time A fall risk assessment has been complete d for the patient 10/11/2024 1:29 PM EST documented as of this encounter Care Teams Cash Office Worker Relationship Specialty Start Date End Date Alan Shoemaker PA [address] [place] [address] PCP - General Internal Medicine 02/08/21 documented as of this encounter
--- OUTSIDE RECORDS SUMMARY | 2024-11-16 12:16 | XMS_ITS | Encounter Summary ---
Author Organization [facility] Address [address] [place] [address] Care Team Providers Care Upholstery Mechanic Name Role Phone Alan Shoemaker Primary Care Provider [phone] Reason for Visit * Reason Onset Date Comments LAB WORK 09/26/2024 Encounter Details Date Type Department Care Team (Late st Contact Info) Description 09/26/2024 Telephone Adult Medicine [facility] [address], [place] [phone] Alan Shoemaker PA [address] [place] [address] LAB WORK Social History Tobacco Use Types [...] pt has uncompleted lab work that order 08/16/24. Please review and advise. * Nela Ramos [...] traveled recently to another state outside of [place], [place], [place], [place], [place], [place], [place]? no o If yes, did you quarantine [...] of accident/Injury: No If yes, gather 3rd alliance party insurance information Third Democrat Information: not applicable PCP: CLARA Quiñones Payor: SARKIS Webb [place] / Plan: [facility] HMO / Product Type: *No Product type* / documented in this encounter Plan of Treatment Not on file documented as of this encounter Visit Diagnoses Not on filedocumented in this encounter Care Teams Upholstery Mechanic Relationship Specialty Start Date End Date Alan Shoemaker PA [address] [place] [address] PCP - General Internal Medicine 02/08/21 documented as of this encounter
--- OUTSIDE RECORDS SUMMARY | 2024-11-16 12:16 | XMS_ITS | Encounter Summary ---
Author Organization [facility] Address [address] [place] [address] Care Team Providers Care Civil Engineering Project Designer Name Role Phone Alan Shoemaker Primary Care Provider [phone] Reason for Visit * Reason Comments Home health cert Encounter Details Date Type Department Care Team (Late st Contact Info) Description 11/03/2024 Billing Patient Not Present Adult Medicine [facility] [address] [place] [address] Alan Shoemaker PA [address] [place] [address] Schizoaffective disorder, unspecified type (CMS/HCC) (Primary Dx); [...] documented as of this encounter Care Teams Civil Engineering Project Designer Relationship Specialty Start Date End Date Alan Shoemaker PA [address] [place] [address] PCP - General Internal Medicine 02/08/21 documented as of this encounter
--- OUTSIDE RECORDS SUMMARY | 2024-11-16 12:16 | XMS_ITS | Clinical Summary ---
Author Organization [facility] [address] [place] [address] [place] [phone] Phone Care Team Providers Care Demolition Expert Name Role Phone Alan Shoemaker Primary Care Provider +1 [phone] Allergies Active Allergy Reactions Criticality Noted Date [...] liver 05/30/2014 Overview (08/09/2024): Seen on usn 05/17 Trigger finger 05/30/2014 Overview (08/09/2024): 3rd left [...] Encounters Date Type Department Care Team Description 11/16/2024 Telephone Adult Medicine [address] [phone] Alan Shoemaker PA faxed order ([facility] [id number]) 11/14/2024 Telephone Formerly [facility] Medicine [address] [address] Alan Shoemaker PA [facility] 11/13/2024 Lab Requisition [facility] - Main Lab [address] [facility] [place] [address] John Quiñones MD Sepsis, unspecified organism (CMS/HCC); Unspecified bacterial pneumonia; Hyperkalemia; Unspecified atrial fibrillation (CMS/HCC) 11/04/2024 Telephone Adult Medicine [address] [address] Alan Shoemaker PA faxed order (Faxed order received from [facility] [id number] please sign and fax to [phone].) 11/03/2024 Billing Patient Not Present Adult [address] [phone] Alan Shoemaker PA Schizoaffective disorder, unspecified type (CMS/HCC) (Primary Dx); Bipolar affective disorder, remission status unspecified (CMS/HCC); Paroxysmal atrial fibrillation (CMS/HCC); Primary hypertension; Obesity, unspecified class, unspecified obesity type, unspecified whether serious comorbidity present; Weakness 10/18/2024 9:45 AM EST Ancillary Procedure [facility] [address] [address] Carotid stenosis, asymptomatic, bilateral; Pure hypercholesterolemia; [...] 10/11/2024 1:30 PM EST Office Visit Adult Medicine [address] [phone] Tomas Gruber MD Dysuria (Primary Dx); Urinary incontinence, unspecified type 09/26/2024 Telephone Adult [address] [phone] Alan Shoemaker PA LAB WORK 09/26/2024 Telephone Adult [address] [phone] Alan Shoemaker PA 09/19/2024 Telephone Adult [address] [phone] Tahira Duran RN medication verfication 09/08/2024 Billing Patient Not Present Adult [address] [phone] Alan Shoemaker PA Schizoaffective disorder, unspecified type (CMS/HCC) (Primary Dx); Bipolar affective disorder, remission status unspecified (CMS/HCC); Paroxysmal atrial fibrillation (CMS/HCC); Primary hypertension; Weakness; Obesity, unspecified class, unspecified obesity type, unspecified whether serious comorbidity present 08/26/2024 Telephone Adult Medicine [address] [phone] Alan Shoemaker PA faxed order ([facility] [id number]) 08/18/2024 Telephone Adult Medicine [address] [phone] Alan Shoemaker PA Medication Problem from Last 3 Months Immunizations Name Administration [...] REL OTHER SURGICAL HISTORY 02/06/2016 Bilateral PROCEDURE: [place] ARTHRP ACETBLR/PROX FEM PROSTC AGRFT/ALGRFT; COMMENT: second [...] Aunt 3 Aunt 4 Father (Age 81) [place]; kidney issues Mother (Age 74) Stomach is [...] 11:32 AM EST Atherosclerotic heart disease of [place] coronary artery without angina pectoris Coronary atherosclerosis [...] minimal heterogeneous plaque. Vertebral flow is antegrade. Assistant Analyst Details A meza scale, color and doppler analysis ultrasound was performed. During the study longitudinal and transverse views were obtained. Pulsed wave doppler was performed. Overall the study quality was adequate. Alan ELIZABETH CV VASCULAR PROCEDURES Fi nal Result * (ABNORMAL) Urinalysis with reflex microscopic (10/11/2024 2:17 PM EST) Pathologist [facility] [place] Urine 1.018 1.003 - 1.030 LAB URINALYSIS - AUTOMATED METHOD 10/11/2024 6:31 PM [facility] LAB pH, Urine 5.5 5.0 - 8.0 pH LAB URINALYSIS - AUTOMATED METHOD 10/11/2024 6:31 PM [facility] LAB Leukocytes, Urine Small(A) Negative LAB URINALYSIS - AUTOMATED METHOD 10/11/2024 6:31 PM [facility] LAB Nitrite, Urine Negative Negative LAB URINALYSIS - AUTOMATED METHOD 10/11/2024 6:31 PM [facility] Protein, Urine Negative <=Trace mg/dL LAB URINALYSIS - AUTOMATED METHOD 10/11/2024 6:31 PM [facility] Glucose, Urine Negative Negative mg/dL LAB URINALYSIS - AUTOMATED METHOD 10/11/2024 6:31 PM [facility] Ketones, Urine Trace(A) Negative mg/dL LAB URINALYSIS - AUTOMATED METHOD 10/11/2024 6:31 PM [facility] LAB Urobilinogen , Urine 0.2 0.2 - 1.0 mg/dL LAB URINALYSIS - AUTOMATED METHOD 10/11/2024 6:31 PM [facility] LAB Bilirubin, Urine Negative Negative LAB URINALYSIS - AUTOMATED METHOD 10/11/2024 6:31 PM [facility] Blood, Urine Negative Negative LAB URINALYSIS - AUTOMATED METHOD 10/11/2024 6:31 PM [facility] RBC, Urine 4.0 0 - 4 /HPF LAB URINALYSIS - AUTOMATED METHOD 10/11/2024 6:31 PM [facility] LAB WBC, Urine 23.2(H) 0 - 4 /HPF LAB URINALYSIS - AUTOMATED METHOD 10/11/2024 6:31 PM [facility] Squamous Epithelial, Urine 40 0 - 60 /LPF LAB URINALYSIS - AUTOMATED METHOD 10/11/2024 6:31 PM [facility] Bacteria, Urine Moderate(A) Negative /HPF LAB URINALYSIS - AUTOMATED METHOD 10/11/2024 6:31 PM [facility] Hyaline Casts, Urine 1.2 0 - 3 /LPF LAB URINALYSIS - AUTOMATED METHOD 10/11/2024 6:31 PM [facility] Urine Urine specimen obtained by clean catch procedure / Unknown Non-blood Collection / Unknown 10/11/2024 2:17 PM EST 10/11/2024 2:17 PM EST Alan ELIZABETH LAB URINE ORDERABLES Mindy l Result [facility] [address] [place] [address], [place] [phone] * (ABNORMAL) Lipid panel with reflex to direct LDL (10/11/2024 2:17 PM EST) Cholesterol 123 0 - 200 mg/dL LAB CHEMISTRY METHOD 10/11/2024 5:01 PM [facility] Triglycerides 391(H) 0 - 150 mg/dL LAB CHEMISTRY METHOD 10/11/2024 5:01 PM [facility] HDL 36(L) >=40 mg/dL LAB CHEMISTRY METHOD 10/11/2024 5:01 PM [facility] LDL Calculated 9 0 - 100 mg/dL LAB CHEMISTRY METHOD 10/11/2024 5:01 PM [facility] VLDL Cholesterol Armando 78.2 mg/dL LAB CHEMISTRY METHOD 10/11/2024 5:01 PM [facility] Non HDL Chol. (LDL+VLDL) 87 <145 mg/dL LAB CHEMISTRY METHOD 10/11/2024 5:01 PM [facility] Chol/HDL Ratio 3.4 0.0 - 4.4 LAB CHEMISTRY METHOD 10/11/2024 5:01 PM [facility] Blood Venous blood specimen / Unknown Venipuncture / Unknown 10/11/2024 2:17 PM EST 10/11/2024 2:17 PM EST Alan ELIZABETH LAB BLOOD ORDERABLES Mindy l Result Performing Organization Address City/[facility]/ZIP Co de Phone Number [facility] [address] [place] [address], [place] [phone] * (ABNORMAL) CBC auto differential (10/11/2024 2:17 PM EST) [facility] WBC 9.9 4.8 - 10.8 K/mcL LAB HEMETOLOGY METHOD 10/11/2024 4:40 PM [facility] RBC 4.60 3.80 - 4.80 M/mcL LAB HEMETOLOGY METHOD 10/11/2024 4:40 PM [facility] Hemoglobin 15.0 11.5 - 16.0 g/dL LAB HEMETOLOGY METHOD 10/11/2024 4:40 PM [facility] Hematocrit 44.4 35.0 - 47.0 % LAB HEMETOLOGY METHOD 10/11/2024 4:40 PM [facility] MCV 97.4 79.0 - 98.0 FL LAB HEMETOLOGY METHOD 10/11/2024 4:40 PM [facility] MCH 32.9(H) 27.0 - 32.0 pcg LAB HEMETOLOGY METHOD 10/11/2024 4:40 PM [facility] MCHC 33.8 32.0 - 37.0 g/dL LAB HEMETOLOGY METHOD 10/11/2024 4:40 PM [facility] RDW 13.5 11.0 - 15.0 % LAB HEMETOLOGY METHOD 10/11/2024 4:40 PM [facility] Platelets 208 130 - 400 K/mcL LAB HEMETOLOGY METHOD 10/11/2024 4:40 PM [facility] MPV 11.5(H) 7.0 - 11.0 FL LAB HEMETOLOGY METHOD 10/11/2024 4:40 PM [facility] NRBC 0.0 <1.0 % LAB HEMETOLOGY METHOD 10/11/2024 4:40 PM [facility] NRBC Absolute 0.00 <0.10 K/mcL LAB HEMETOLOGY METHOD 10/11/2024 4:40 PM [facility] Neutrophils Relative 55.3 % LAB HEMETOLOGY METHOD 10/11/2024 4:40 PM [facility] Lymphocytes Relative 32.3 % LAB HEMETOLOGY METHOD 10/11/2024 4:40 PM [facility] Monocytes Relative 9.3 % LAB HEMETOLOGY METHOD 10/11/2024 4:40 PM [facility] Eosinophils Relative 2.3 % LAB HEMETOLOGY METHOD 10/11/2024 4:40 PM [facility] Basophils Relative 0.5 % LAB HEMETOLOGY METHOD 10/11/2024 4:40 PM [facility] Immature Granulocytes Relative 0.3 % LAB HEMETOLOGY METHOD 10/11/2024 4:40 PM [facility] Neutrophils Absolute 5.49 1.50 - 7.00 K/mcL LAB HEMETOLOGY METHOD 10/11/2024 4:40 PM [facility] Lymphocytes Absolute 3.20 1.00 - 5.00 K/mcL LAB HEMETOLOGY METHOD 10/11/2024 4:40 PM [facility] Monocytes Absolute 0.92 0.20 - 1.00 K/mcL LAB HEMETOLOGY METHOD 10/11/2024 4:40 PM [facility] Eosinophils Absolute 0.23 0.00 - 0.50 K/mcL LAB HEMETOLOGY METHOD 10/11/2024 4:40 PM [facility] Basophils Absolute 0.05 0.00 - 0.20 K/mcL LAB HEMETOLOGY METHOD 10/11/2024 4:40 PM [facility] Immature Granulocytes Absolute 0.03 0.00 - 0.03 K/mcL LAB HEMETOLOGY METHOD 10/11/2024 4:40 PM [facility] Blood Venous blood specimen / Unknown Venipuncture / Unknown 10/11/2024 2:17 PM EST 10/11/2024 2:17 PM EST Alan ELIZABETH LAB BLOOD ORDERABLES Mindy l Result [facility] [address] [place] [address], [place] [phone] * Culture blood (10/11/2024 2:17 PM EST) Culture, Blood No growth at 5 days LAB MICROBIOLOGY METHOD 10/16/2024 5:01 PM EST [facility] Blood Venous blood specimen / Unknown Venipuncture / Unknown 10/11/2024 2:17 PM EST 10/11/2024 3:13 PM EST Alan ELIZABETH LAB MICROBIOLOGY - GENERA L ORDERABLES Final Result Performing Organization Address [facility]/ZIP Co de Phone Number [facility] [address] [place] [address], [place] [phone] * (ABNORMAL) Culture urine (10/11/2024 2:17 PM EST) Culture, Urine 10,000-49,000 CFU/mL Klebsiella pneumoniae ssp pneumoniae(A) ANA CRISTINA 10/13/2024 9:17 AM EST [facility] Comment: This is an edited result. Previous organism was Gram negative bacilli on 10/12/2024 at 0751 EST. Urine Urine specimen obtained by clean catch procedure / Unknown Non-blood Collection / Unknown 10/11/2024 2:17 PM EST 10/11/2024 2:17 PM EST Narrative [facility] - 10/13/2024 9:17 AM EST [...] MICROBIOLOGY - GENERA L ORDERABLES Final Result [facility] [address] [place] [address], [place] [phone] * (ABNORMAL) Comprehensive metabolic panel (10/11/2024 2:17 PM EST) Sodium 139 133 - 145 mmol/L LAB CHEMISTRY METHOD 10/11/2024 5:00 PM EST [facility] Potassium 4.2 3.5 - 5.5 mmol/L LAB CHEMISTRY METHOD 10/11/2024 5:00 PM EST [facility] Chloride 105 96 - 110 mmol/L LAB CHEMISTRY METHOD 10/11/2024 5:00 PM EST [facility] CO2 26 21 - 32 mmol/L LAB CHEMISTRY METHOD 10/11/2024 5:00 PM EST [facility] Anion Gap 8 3 - 11 LAB CHEMISTRY METHOD 10/11/2024 5:00 PM [facility] Glucose 120(H) 70 - 100 mg/dL LAB CHEMISTRY METHOD 10/11/2024 5:00 PM [facility] BUN 25 5 - 25 mg/dL LAB CHEMISTRY METHOD 10/11/2024 5:00 PM [facility] Creatinine 1.20(H) 0.50 - 1.10 mg/dL LAB CHEMISTRY METHOD 10/11/2024 5:00 PM [facility] eGFR 46(L) >=60 mL/min/1. 73m2 LAB CHEMISTRY METHOD 10/11/2024 5:00 PM [facility] Comment:Calculation based on the??Chronic Kidney Disease Epidemiology Collaboration (CKD-EPI) equation refit??without adjustment for race. BUN/Creatinine Ratio 20.8 LAB CHEMISTRY METHOD 10/11/2024 5:00 PM [facility] Calcium 9.8 8.5 - 10.5 mg/dL LAB CHEMISTRY METHOD 10/11/2024 5:00 PM [facility] AST (SGOT) 32 10 - 42 unit/L LAB CHEMISTRY METHOD 10/11/2024 5:00 PM [facility] ALT (SGPT) 51 10 - 60 unit/L LAB CHEMISTRY METHOD 10/11/2024 5:00 PM [facility] Alkaline Phosphatase 95 42 - 121 unit/L LAB CHEMISTRY METHOD 10/11/2024 5:00 PM [facility] Total Protein 7.1 6.0 - 8.0 g/dL LAB CHEMISTRY METHOD 10/11/2024 5:00 PM [facility] Albumin 3.9 3.2 - 5.0 g/dL LAB CHEMISTRY METHOD 10/11/2024 5:00 PM [facility] Total Bilirubin 0.5 0.0 - 1.4 mg/dL LAB CHEMISTRY METHOD 10/11/2024 5:00 PM [facility] Blood Venous blood specimen / Unknown Venipuncture / Unknown 10/11/2024 2:17 PM EST 10/11/2024 2:17 PM EST us Alan ELIZABETH LAB BLOOD ORDERABLES Mindy stearns Result [facility] [address] [place] [address], * DXA BONE DENSITY STUDY 1+ SITS [...] alternative screening schedule based on leonila Acuña., [facility] September 25, 2011 for patients with [...] Final Result * Hepatitis C Screening (03/20/2017) [facility] Hepatitis C Screening abstracted Historical Provider HEALTH MAINTENANCE Final Result from Last 3 Months or Most Recently Relevant to Health Maintenance Insurance Care Teams Demolition Expert Relationship Specialty Start Date End Date Alan Shoemaker, CLARA [address] [place] [address] PCP - General Internal Medicine 02/08/21
--- OUTSIDE RECORDS SUMMARY | 2024-11-16 12:16 | XMS_ITS | Encounter Summary ---
Author Organization [facility] Address [address] [place] [address] Care Team Providers Care Pick Out Hand Name Role Phone Alan Shoemaker Primary Care Provider [phone] [phone] Reason for Visit * Reason Onset Date Comments faxed order 11/04/2024 Faxed order rece ived from [facility] [id number] please sign and fax to [phone]. Encounter Details Date Type Department Care Team (Late st Contact Info) Description 11/04/[address] [facility] [address] [place] [phone] Alan Shoemaker PA [address] [place] [phone] faxed order (Faxed order received from [facility] [id number] please sign and fax to [phone].) Social History Tobacco Use Types Packs/Day Years [...] documented as of this encounter Care Teams Pick Out Hand Relationship Specialty Start Date End Date Alan Shoemaker PA [address] [place] [address] PCP - General Internal Medicine 02/08/21 documented as of this encounter
--- OUTSIDE RECORDS SUMMARY | 2024-11-16 12:16 | XMS_ITS | Encounter Summary ---
Author Organization [facility] Address [address] [place] [address] Care Team Providers Care Lyft Driver Name Role Phone Alan Shoemaker Primary Care Provider [phone] [phone] Reason for Visit * Reason Onset Date Comments medication verfication 09/19/2024 Encounter Details Date Type Department Care Team (Late st Contact Info) Description 09/19/2024 Telephone Adult Medicine [address] [phone] Tahira Duran, learning operations specialist verfication Social History Tobacco Use Types Packs/Day [...] on filedocumented in this encounter Care Teams Lyft Driver Relationship Specialty Start Date End Date Alan Shoemaker PA [address] [place] [address] PCP - General Internal Medicine 02/08/21 documented as of this encounter
--- OUTSIDE RECORDS SUMMARY | 2024-11-16 12:16 | XMS_ITS | Encounter Summary ---
Author Organization [facility] Address [address] [place] [address] Care Team Providers Care Rehabilitation Counsellor Name Role Phone Alan Shoemaker Primary Care Provider +1 [phone] Encounter Details Date Type Department Care Team (Late st Contact Info) Description 11/13/2024 Lab Requisition [facility] - Main Lab [address] [facility] [place] [address] John Quiñones MD [address] [place] [address] Sepsis, unspecified organism (CMS/HCC); Unspecified bacterial pneumonia; Hyperkalemia; Unspecified atrial fibrillation (CMS/HCC) Social History Tobacco Use Types Packs/Day Years [...] as of this encounter Visit Diagnoses Diagnosis Sepsis, unspecified organism (CMS/HCC) Unspecified bacterial pneumonia Hyperkalemia Hyperpotassemia Unspecified atrial fibrillation (CMS/HCC) documented in this encounter Additional Health Concerns Assessment Noted Time A fall risk assessment has been complete d for the patient 10/11/2024 1:29 PM EST documented as of this encounter Care Teams Rehabilitation Counsellor Relationship Specialty Start Date End Date Alan Shoemaker PA [address] [place] [address] PCP - General Internal Medicine 02/08/21 documented as of this encounter
--- OUTSIDE RECORDS SUMMARY | 2024-11-16 12:16 | XMS_ITS | Encounter Summary ---
Author Organization [facility] Address [address] [place] [address] Care Team Providers Care Gimp Tacker Name Role Phone Alan Shoemaker Primary Care Provider [phone] [phone] Reason for Visit * Imaging (Routine) - Closed Specialty Diagnoses / Procedures Referred By Contprice t Referred To Contact Diagnoses Carotid stenosis, [...] bilateral Alan Shoemaker PA Phone: tel: fax: [facility] Referral ID Status Reason Start Date Expiration Date Visits Re quested Visits Authorized [id number] Closed 06/26/2024 06/26/2025 1 1 Encounter Details Date Type Department Care Team (Latest Contact Info) Description 10/18/2024 9:45 AM EST Ancillary Procedure [facility] [address] [place] [address] Carotid stenosis, asymptomatic, bilateral; Pure hypercholesterolemia ; Routine general medical examination at a health care facility; Multiple thyroid nodules; Coronary artery disease due to lipid rich plaque; Carotid atherosclerosis, unspecified laterality; Osteoporosis, unspecified osteoporosis type, unspecified pathological fracture presence; Stage 3b chronic kidney disease (CKD) (CMS/HCC); Vitamin D deficiency; Primary hypertension; Bipolar affective disorder, remission status unspecified ([facility]); Spinal stenosis of lumbar region without neurogenic [...] presence Stage 3b chronic kidney disease (CKD) (CMS/[facility]) Vitamin D deficiency Primary hypertension Bipolar affective disorder, remission status unspecified (CMS/[facility]) Spinal stenosis of lumbar region without neurogenic [...] minimal heterogeneous plaque. Vertebral flow is antegrade. Route Driver Details A meza scale, color and doppler [...] a health care facility Multiple thyroid nodules Nontoxic multinodular goiter Coronary artery disease due to lipid rich plaque Carotid atherosclerosis, unspecified laterality Osteoporosis, unspecified osteoporosis type, unspecified pathological fracture presence Stage 3b chronic kidney disease (CKD) ([facility]/HCC) Vitamin D deficiency Primary hypertension Unspecified essential hypertension Bipolar affective disorder, remission status unspecified ([facility]) Spinal stenosis of lumbar region without neurogenic claudication Mixed hyperlipidemia Depression, unspecified depression type Fatty liver Other chronic nonalcoholic liver disease documented in this encounter Additional Health Concerns Assessment Noted Time A fall risk assessment has been complete d for the patient 10/11/2024 1:29 PM EST documented as of this encounter Care Teams Gimp Tacker Relationship Specialty Start Date End Date Alan Shoemaker PA [address] [place] [address] PCP - General Internal Medicine 02/08/21 documented as of this encounter
--- OUTSIDE RECORDS SUMMARY | 2024-11-16 12:16 | XMS_ITS | Encounter Summary ---
Author Organization [facility] Address [address] [place] [address] Care Team Providers Care Video And Sound Recorder Name Role Phone Alan Shoemaker Primary Care Provider [phone] [phone] Encounter Details Date Type Department Care Team (Late st Contact Info) Description 09/26/2024 Telephone Adult Medicine [facility] [address] [place] [address] Alan Shoemaker PA [address] [place] [address] Social History Tobacco Use Types Packs/Day Years [...] on filedocumented in this encounter Care Teams Video And Sound Recorder Relationship Specialty Start Date End Date Alan Shoemaker PA [address] [place] [address] PCP - General Internal Medicine 02/08/21 documented as of this encounter
--- NOTE | 2024-11-16 13:01 | PC.NURSE ---
While this RN was in adjacent room establishing IV access, asked by volunteer if she could strip the bed and flip the room as the bed looked empty. Patient not found in room or bathroom. pheresis nurse Coni made aware by volunteer as this RN was occupied. Security made aware by Coni, patient looks to have left the department. Patient then found by security & registration, walked back to room.
--- NOTE | 2024-11-16 13:10 | MHC.CM.ED ---
Addendum entered by Elly Juarez 11/16/24 16:05: Patient's [facility] case loader operator is Maude Sánchez. Attempted to reach her via telephone at [phone] ext [phone]. Left a message requesting return telephone call. Original Note: Received case management consult from Dr Richey. Patient was originally d/c'd from the ER on 11/14 with resumption of services through [facility] and [facility]. Patient returned to ER today with c/o anxiety, not having medications and multiple other complaints. Spoke with Mai of [facility]. Patient was d/c'd to her home on 11/05 with [facility] and [facility] services. Patient was insistent that she was able to return home. However, [facility] received notification from patient's neighbor that she wanted to return. Mai was scheduled to meet patient at her home today at 12pm to assess if she wanted to return to [facility]. Mai would not be able to meet with patient today. Might be able to meet tomorrow Received telephone call from [place] of [facility]. Physical therapy eval was originally ordered for patient. jail was added after the last ER visit. Agency is concerned about patient's ability to safely remain home. Patient is supposed to be receiving services from [facility]. Waiting for return call about services patient is currently receiving. Continue to monitor for d/c needs.
--- NOTE | 2024-11-16 13:13 | PC.NURSE ---
Patient changed back into [facility], belongings secured in [facility]
--- NOTE | 2024-11-16 16:20 | PC.NURSE ---
Med Rec done, Dr. Richey asked to order meds waiting for orders.
--- NOTE | 2024-11-16 16:29 | ED_ITS ---
HPI - General Adult General Chief complaint: General Medical Stated complaint: ANXIETY,TROUBLE LIVING INDEP S/P D/C FROM [facility] Time Seen by Provider: 11/16/24 09:31 Related Data Home Medications ?Medication ?Instructions ?Recorded ?Confirmed apixaban 5 mg tablet (Eliquis) 5 mg PO BID 11/11/24 11/16/24 aripiprazole 10 mg tablet 10 mg PO DAILY 11/11/24 11/16/24 atorvastatin 20 mg tablet 20 mg PO BEDTIME 11/11/24 11/16/24 digoxin 125 mcg (0.125 mg) tablet 125 mcg PO DAILY 11/11/24 11/16/24 diltiazem HCl 180 mg 360 mg PO DAILY 11/11/24 11/16/24 capsule,extended release 24 hr losartan 100 mg tablet 100 mg PO DAILY 11/11/24 11/16/24 pantoprazole 40 mg tablet,delayed 40 mg PO DAILY@0630 11/11/24 11/16/24 release acetaminophen 650 mg 1,300 mg PO BID PRN Pain 11/12/24 11/16/24 tablet,extended release melatonin 10 mg tablet 10 mg PO BEDTIME PRN Insomnia 11/12/24 11/16/24 metoprolol tartrate 50 mg tablet 25 mg PO BID 11/16/24 11/16/24 Allergies Allergy/AdvReac Type Severity Reaction Status Date / Time insect venom [INSECT BITES] Allergy Unknown SWELLING Verified 11/16/24 09:32 [facility] Social History Social History Alcohol intake: former Smoked in Last 30 Days: No Use of substances other than those prescribed or required for medical reasons: No Advance Directives: Yes Advance Directives on File: Yes Advance Directives Date on File: 11/14/24 Do you have a plan to hurt others: No Plan Physical Exam ED Vital Signs: Vital Signs - 24 hr 11/16/24 09:30 11/16/24 11:15 11/16/24 14:47 Temperature 97.4 F 99.9 F Pulse Rate 99 86 82 Respiratory Rate 12 16 14 Blood Pressure 141/73 H 125/62 120/72 Pulse Oximetry 96 97 95 Oxygen Delivery Method Room Air Room Air Room Air 11/16/24 15:13 Temperature 97.8 F Pulse Rate 106 H Respiratory Rate 16 Blood Pressure 132/70 Pulse Oximetry 96 Oxygen Delivery Method Room Air BMI result Body Mass Index 28.9 Medications Administered Discontinued Medications Generic Name Dose Route Start Last Admin Trade Name Freq PRN Reason Stop Dose Admin Alprazolam 0.25 mg 11/16/24 10:32 11/16/24 10:57 Alprazolam 0.25 Mg Tablet PO 11/16/24 10:33 0.25 mg ONCE ONE Administration Medical Decision Making Lab Data 11/16/24 10:04 11/16/24 10:04 Labs: Lab Results 11/16/24 Range/Units 10:04 WBC 10.5 (4.8-10.8) X10*3/uL RBC 4.59 (4.20-5.50) X10*6/uL Hgb 15.3 (12.0-16.0) g/dl Hct 42.9 (37.0-47.0) % MCV 93.5 (80.0-98.0) fL MCH 33.3 H (27.0-33.0) pg MCHC 35.7 H (31.0-35.0) g/dl RDW 12.6 (11.0-16.0) % Plt Count 182 (160-400) X10*3/uL MPV 10.0 (9.4-12.3) fL Immature Gran % (Auto) 0.3 (0.0-0.4) % Neut % (Auto) 72.0 (45-73) % Lymph % (Auto) 18.4 L (20-40) % [place] % (Auto) 8.3 (2-11) % Eos % (Auto) 0.4 (0-4) % Baso % (Auto) 0.6 (0-2) % Lymph # (Auto) 1.9 (1.2-4.9) X10*3/uL [place] # (Auto) 0.9 (0.1-1.2) X10*3/uL Eos # (Auto) 0.0 (0.0-0.4) X10*3/uL Baso # (Auto) 0.1 (0.0-0.2) X10*3/uL Abs Immat Gran (auto) 0.03 (0.00-0.03) X10*3/uL Absolute Neuts (auto) 7.6 (2.0-8.3) x10*3/uL Absolute Nucleated RBC 0.000 (0.0-0.012) X10*3/uL Nucleated RBC % (auto) 0.0 (0.0-0.2) /100WBC Sodium 142 (135-145) mmol/L Potassium 3.8 (3.3-5.1) mmol/L Chloride 107 (96-108) mmol/L Carbon Dioxide 24 (22-29) mmol/L Anion Gap 15 (12-20) BUN 35 H (9-16) mg/dL Creatinine 1.60 H (0.5-1.4) mg/dL Estim Creat Clear Calc 28.5 Estimated GFR 31 Random Glucose 124 H (60-115) mg/dL Calcium 9.3 (8.4-10.2) mg/dL Total Bilirubin 0.9 (0.0-1.0) mg/dL AST 51 H (5-31) U/L ALT 74 H (0-31) U/L Alkaline Phosphatase 84 (39-117) U/L Total Protein 7.1 (6.5-8.0) g/dL Albumin 4.0 (3.5-5.0) g/dL Discharge Plan Discharge Clinical Impression: Adjustment disorder with anxiety Patient Disposition: Still a Patient Instructions: Anxiety (ED) Prescriptions: No Action atorvastatin 20 mg tablet 20 mg PO BEDTIME diltiazem HCl 180 mg capsule,extended release 24hr 360 mg PO DAILY pantoprazole 40 mg tablet,delayed release (DR/EC) 40 mg PO DAILY@0630 digoxin 125 mcg (0.125 mg) tablet 125 mcg PO DAILY losartan 100 mg tablet 100 mg PO DAILY aripiprazole 10 mg tablet 10 mg PO DAILY Eliquis 5 mg tablet 5 mg PO BID acetaminophen [Tylenol Arthritis] 650 mg Tablet Extended Release 1,300 mg PO BID PRN (Reason: Pain) melatonin 10 mg Tablet 10 mg PO BEDTIME PRN (Reason: Insomnia) metoprolol tartrate 50 mg tablet 25 mg PO BID Print Language: [place]
[2024-11-16] MEDS: Digoxin 0.125 MG TABLET PO (17:12)
[2024-11-16] MEDS: dilTIAZem HCL CD 180 MG CAP.ER.24H 360 MG PO (17:12)
[2024-11-16] MEDS: ARIPiprazole 10 MG TABLET PO (17:12)
[2024-11-16] MEDS: Metoprolol Tartrate 25 MG TABLET PO (20:21)
[2024-11-16] MEDS: Apixaban 5 MG TABLET PO (20:21)
[2024-11-16] MEDS: Atorvastatin Calcium 20 MG TABLET PO (20:21)
[2024-11-17] MEDS: Omeprazole 20 MG CAPSULE.DR PO (05:34)
[2024-11-17 05:35] VITALS: BP 113/73; PULSE 77; RESP 18; TEMP 36.6; O2SAT 94
[2024-11-17 07:07] VITALS: BP 143/70; PULSE 89; RESP 18; TEMP 36.7; O2SAT 98
[2024-11-17] MEDS: dilTIAZem HCL CD 180 MG CAP.ER.24H 360 MG PO (09:06)
[2024-11-17] MEDS: Metoprolol Tartrate 25 MG TABLET PO ×2 (09:07→20:35)
[2024-11-17] MEDS: ARIPiprazole 10 MG TABLET PO (09:07)
[2024-11-17] MEDS: Digoxin 0.125 MG TABLET PO (09:07)
[2024-11-17] MEDS: Losartan Potassium 50 MG TABLET 100 MG PO (09:07)
[2024-11-17] MEDS: Apixaban 5 MG TABLET PO ×2 (09:07→20:34)
--- NOTE | 2024-11-17 09:43 | PC.NURSE ---
assumed care of patient at 0700, patient is awake and alert, pleasantly confused. patient eating breakfast, concerned about when staff are going to come speak with her regarding the next step . patient educated that case management is taking care of and aware of her case. patient medicated per MAR
--- NOTE | 2024-11-17 09:59 | PC.NURSE ---
patient moved into hospital bed for comfort. patient stood and pivot with cane standby assist.
[2024-11-17 13:44] VITALS: BP 143/70; PULSE 89; O2SAT 98
[2024-11-17 14:27] VITALS: BP 135/56; PULSE 83; RESP 18; TEMP 36.4; O2SAT 94
--- NOTE | 2024-11-17 14:39 | MHC.EDTECH ---
pt refusing vitals at this time saying i need to get to the steps. RN made aware
--- NOTE | 2024-11-17 18:35 | PC.NURSE ---
Pt to ED overflow at approx 1140. Pt alert, oriented to self only. Requires frequent redirection - pt exits room repeatedly, independent with cane, steady gait. Respirations even and unlabored. Pt offers no complaints, requesting belongings. Given clothing and shoes from main ED - cell phone and electronic bag kept at nurses station.
[2024-11-17 20:27] VITALS: BP 131/59; PULSE 81; RESP 16; TEMP 36.8; O2SAT 97
--- NOTE | 2024-11-17 20:28 | MHC.EDTECH ---
This pct assumed care of Patient at 1900 ,vitals taken ,Patient was dress in her clothes ,Patient was belt changer by this pct and Patient belongings are at nurses station .
[2024-11-17] MEDS: Melatonin 3 MG TABLET 9 MG PO (20:34)
[2024-11-17] MEDS: Atorvastatin Calcium 20 MG TABLET PO (20:35)
--- NOTE | 2024-11-17 21:08 | MHC.EDTECH ---
Patient bmp drawn and sent to lab .
[2024-11-17 21:35] LABS: Anion Gap 14 (12-20); Blood Urea Nitrogen 36 mg/dL (9-16); Calcium 9.4 mg/dL (8.4-10.2); Carbon Dioxide 22 mmol/L (22-29); Chloride 110 mmol/L (96-108); Estimated Glomerular Filt Rate 43; Glucose Random 112 mg/dL (60-115); Potassium 3.9 mmol/L (3.3-5.1); Sodium 142 mmol/L (135-145)
[2024-11-18] MEDS: Omeprazole 20 MG CAPSULE.DR PO (06:15)
[2024-11-18 06:20] VITALS: BP 110/61; PULSE 62; RESP 16; TEMP 36.7; O2SAT 96
[2024-11-18 08:13] VITALS: BP 129/63; PULSE 79; RESP 20; TEMP 36.2; O2SAT 100
[2024-11-18] MEDS: Losartan Potassium 50 MG TABLET 100 MG PO (08:13)
[2024-11-18] MEDS: Metoprolol Tartrate 25 MG TABLET PO ×2 (08:13→20:12)
[2024-11-18] MEDS: Apixaban 5 MG TABLET PO ×2 (08:13→20:13)
--- NOTE | 2024-11-18 08:47 | MHC.CM.ED ---
Addendum entered by Elly Juarez 11/18/24 09:17: [facility] does not have a female bed and is not contracted with patient's insurance. Reached out to Amisha. Amisha agreeable to referral being broadcasted locally to all facilities contracted with patient's insurance. Original Note: Patient remains in ER overflow. Physical therapy eval completed. Short term rehab is recommended. Received telephone call from Amisha, local [facility]. She can be reached via telephone at [phone]. Amisha verifies patient was privately paying $14,000 for month at [facility]. She was then transitioned to [facility] in March 2024 until November. Patient's home needed to be cleened out due to hoarding. It took 5 weeks for house to be cleaned and another 4 weeks for the home to be ready for patient to move in. Amisha did not agree with this decision but felt patient had to have the opportunity to try. Cece saenz patient has a working cellphone that she pays for monthly. However, patient will get confused and the phone will lock itself. Amisha feels patient will need to return to [facility] and is unable to safely return home. However, [facility] is unable to assess patient in the ER. Amisha aware PT is recommending STR. Amisha requesting referral to [facility]. Amisha states she is her HCP since [facility], since patient does not have any children. Her niece lives in [place] but has MS. Amisha has the intentions of applying for a guardianship for patient at a later date. Referral will be made to [facility]. Copy of HCP requested from [facility]. Continue to monitor for d/c needs.
--- NOTE | 2024-11-18 09:10 | PC.NURSE ---
assumed care of patient at 0700, patient is awake and alert, resp even and unlabored. patient sat up and ate breakfast this morning. ambulates with cane, gait steady, patient medicated per MAR
[2024-11-18] MEDS: Digoxin 0.125 MG TABLET PO (09:33)
[2024-11-18] MEDS: dilTIAZem HCL CD 180 MG CAP.ER.24H 360 MG PO (09:33)
[2024-11-18] MEDS: ARIPiprazole 10 MG TABLET PO (09:34)
--- NOTE | 2024-11-18 11:04 | PM.PSYCN ---
History of Present Illness Date of Service: 11/18/24 Chief Complaint: ANXIETY,TROUBLE LIVING INDEP S/P D/C FROM [facility] Reason for Consult: Capacity, Ability of live in the community. Requesting physician: Neha Scanlon Sources of Information: patient interviewed and chart reviewed Additional Sources of Information: Seen 10:25am HPI Narrative: 79 yo female, admitted to ED Overflow 11/16 after a recent DC from [facility]. Pt reports she was admitted there ~9 months for rehab and discharged recently. She reports ER visit 11/14 as her services that were set up for discharge did not seem to coordinate to the home and reports being at home alone, with no services or phone for 4 days and she became anxious. Pt reports she would like to try to live at home again with supports, I know it will not be forever, but I want to try. Pt also reported she had no medicines at home and did not want to miss doses as she had no refills. I take my treatments seriously . Discussed capacity eval request, pt agrees and is eager to participate. Identifies the issue as needing help at home, having her discharge plan not work and needing to re-work the plan, thus the issue for ER visit. Identifies having no phone that she knows how to work, no keys for her car, no med refills when discharged from the nursing facility. Pt reports she thinks she should return to [facility] and re-work her plan- get help in learning about her phone, physical therapy (has 14 stairs at home she reports) and have further eval for safe DC to home. She is able to discuss risks of going home without resources in place and does not want this and return for LTC. I want to give my home one more try, I know I will have to give it up at some point, but with help, I think I can do it and would like this chance . Identifies what assistance she will need should she remain at home, laundry, grocery shopping, ability to interact, call out- I need to learn how to use the cell phone, ?[employer], can I still drive-if not transport services, I need my keys, meals on wheels, medicine mgt. States she learned a lot at [facility] and can attend to ADL's independently. Past [facility] History[phone] He is away until 11/28, however will call pt upon return.(Message left) Medical Evaluation Reviewed: Yes Review of Systems Review of Systems Pt denies current medical symptoms. She reports using a cane to assist with ambulation. 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 for many years and lives in her own house in [place] and recently went back home from several months of senior living and rehab. The discharge planning was not very secure or did not work out No children, One cousin, in [place] with lung cancer, one cousin in [place] with Parkinson's and MS Substance History: Denies Trauma History: None Diagnostics Vital Signs (24Hr): Vital Signs - 24 hr 11/17/24 13:44 11/17/24 14:27 11/17/24 20:27 Temperature 97.6 F 98.2 F Pulse Rate 89 83 81 Respiratory Rate 18 16 Blood Pressure 143/70 H 135/56 L 131/59 L Pulse Oximetry 98 94 97 Oxygen Delivery Method Room Air Room Air 11/18/24 06:20 11/18/24 08:13 Temperature 98.0 F 97.1 F Pulse Rate 62 79 Respiratory Rate 16 20 Blood Pressure 110/61 129/63 Pulse Oximetry 96 100 Oxygen Delivery Method Room Air Room Air BMI result Body Mass Index 28.9 Labs 11/16/24 10:04 11/17/24 21:07 Labs: Laboratory Results - last 48 hr 11/17/24 21:07 Sodium 142 Potassium 3.9 Chloride 110 H Carbon Dioxide 22 Anion Gap 14 BUN 36 H Creatinine 1.20 Estim Creat Clear Calc 38.0 Estimated GFR 43 Random Glucose 112 Calcium 9.4 Mental Status Exam Mental Status Exam Patient Appearance: Appropriate Patient Orientation: Person, Place, Time and Situation Level of Consciousness: Alert Patient Behavior: Appropriate, Talkative, Cooperative, Anxious and Good Eye Contact Mood Description: Apprehensive Affect Description: Constricted Patient Cognition Impaired: No Ability to Follow Directions: Good Speech Pattern: Spontaneous Speech Memory Description: Intact and Episodic Impaired Hallucinations: None Delusions: Not Present Thought Process: Goal Oriented Thought Content: positive for Goal Oriented and positive for Suicidal Ideation (denies) Depressive Symptoms: Increased Anxiety and Thoughts of /Suicide (denies) Judgement: Fair Medications Medications Current Medications Acetaminophen (Acetaminophen 325 Mg Tablet) 1,300 mg PO BID PRN PRN Reason: Pain Apixaban (Apixaban 5 Mg Tablet) 5 mg PO BID REPLACED BY [facility] Last Admin: 11/18/24 08:13 Dose: 5 mg Aripiprazole (Aripiprazole 10 Mg Tablet) 10 mg PO DAILY REPLACED BY [facility] Last Admin: 11/18/24 09:34 Dose: 10 mg Atorvastatin Calcium (Atorvastatin Calcium 20 Mg Tablet) 20 mg PO BEDTIME REPLACED BY [facility] Last Admin: 11/17/24 20:35 Dose: 20 mg Digoxin (Digoxin 0.125 Mg Tablet) 0.125 mg PO DAILY REPLACED BY [facility]; Protocol Last Admin: 11/18/24 09:33 Dose: 0.125 mg Diltiazem HCl (Diltiazem Hcl Cd 180 Mg Cap.Er.24h) 360 mg PO DAILY REPLACED BY [facility]; Protocol Last Admin: 11/18/24 09:33 Dose: 360 mg Losartan Potassium (Losartan Potassium 50 Mg Tablet) 100 mg PO DAILY REPLACED BY [facility]; Protocol Last Admin: 11/18/24 08:13 Dose: 100 mg Melatonin (Melatonin 3 Mg Tablet) 9 mg PO BEDTIME PRN PRN Reason: Insomnia Last Admin: 11/17/24 20:34 Dose: 9 mg Metoprolol Tartrate (Metoprolol Tartrate 25 Mg Tablet) 25 mg PO BID REPLACED BY [facility]; Protocol Last Admin: 11/18/24 08:13 Dose: 25 mg Omeprazole (Omeprazole 20 Mg Capsule.Dr) 20 mg PO DAILY@0630 REPLACED BY [facility] Last Admin: 11/18/24 06:15 Dose: 20 mg Allergies Allergies Allergy/AdvReac Type Severity Reaction Status Date / Time insect venom [INSECT BITES] Allergy Unknown SWELLING Verified 11/16/24 09:32 Assessment & Plan Assessment & Plan (1) Adjustment disorder with anxiety: Status: Acute Code(s): F43.22 - Adjustment disorder with anxiety Plan Folstein MMSE-28/30-Pt thought today was 11/17, she did not recall one object earlier named. Ability to Understand Current Issue/Problem, Options for Problem Resolution and Alternatives, Risks, Benefits, Consequences are discussed and understood by pt. She denies current depressive sx, but does report anxiety of being alone with no resources for 4 days when planning had taken place for these to be in place. No evidence of psychosis, delusions, paranoia. Pt has decision making capacity. She is open to be advised about what is the safest decision for her to make. She is willing to return to [facility], states she found the facility to be able to meet her needs, however, she was worried due to it's size and number of residents with viral illness (a few of her friends suddenly there she reported), and that she would catch these viral illnesses and she would not recover from them, thus the concern in returning. She did discuss the person that cleaned her home and prepared it for her return and that this person, Amisha, wanted to prepare the house for sale and is angry that I don't want to sell this yet. Pt understands current issues presented, verbalized appreciation of both views of risks, is able to reason with this and accept advice and is engaged well in this communication. Total time managing care of this patient today ____ minutes. Informed Consent: understands
[2024-11-18 12:27] VITALS: BP 113/57; PULSE 78; RESP 20; TEMP 35.7; O2SAT 98
--- NOTE | 2024-11-18 12:50 | MHC.CM.ED ---
Patient remains in ER. [facility], [place] [facility], and [facility] are able to offer a bed. [facility], [facility] and [facility] are still reviewing. This information was discussed with Amisha. Amisha is going to ask the hide salter for [facility] to evaluate patient for placement. Will not be available before Thursday. Per psych, patient has capacity. This information will be discussed with patient. Continue to monitor for d/c needs.
--- NOTE | 2024-11-18 13:14 | PC.NURSE ---
Received message/phone call from Elly Juarez (MARIAA). Reports that per psych, the patient has capacity. Amisha is the local Ombudsman. She has been helping patient with her home and services. Plan is for someone from [facility] to assess her to return there. [facility] to assess Jumana on Thursday (11/21/2024). Care ongoing by this RN. Ate lunch. No acute distress at this time.
--- NOTE | 2024-11-18 13:40 | PC.NURSE ---
Patient sleeping at this time. Respirations even/unlabored. No acute distress noted at this time. Lights dimmed for comfort. Care ongoing by this RN.
--- NOTE | 2024-11-18 14:27 | PC.NURSE ---
Assisted out of bed to commode. Had soft bowel movement and urinated. Aware of plan to meet with [facility] staff on Thursday regarding potential return. Patient agreeable to plan. Call mcdermott within reach, bed alarm on. Watching TV. No needs at this time.
[2024-11-18 15:42] VITALS: BP 97/46; PULSE 56; RESP 12; TEMP 35.8; O2SAT 94
[2024-11-18 20:12] VITALS: BP 112/61; PULSE 73; RESP 17; TEMP 36.8; O2SAT 97
[2024-11-18] MEDS: Atorvastatin Calcium 20 MG TABLET PO (20:13)
[2024-11-18] MEDS: hydrOXYzine HCL 25 MG TABLET PO (20:13)
--- NOTE | 2024-11-18 23:40 | PC.NURSE ---
Assumed care of this patient at 19:00. Patient seen in ED overflow for physician observation; CM following and disposition pending. Pt is A&Ox3, disoriented to her situation. Reoriented. Pt c/o anxiety ?about bills, taxes, and the house? on assuming care. Covering provider Neha Scanlon notified with order for prn atarax ordered and administered, +effect per pt. Pt requested to meet with CM; CM Morenita Alejandre notified. Pt denies pain including chest pain. Denies sob or n/v. VSS. +radial and dp pulses, +cms. Breathing is even and unlabored without distress on room air. Pt is med-compliant and tolerated without issue. Uses cane to ambulate with a standby assist from staff. Voiding odorless cyu at bedside commode. Bed alarm on and safety measures in place. Plan of care continues.
[2024-11-19 06:30] VITALS: BP 118/73; PULSE 61; RESP 17; TEMP 36.2; O2SAT 97
[2024-11-19] MEDS: Omeprazole 20 MG CAPSULE.DR PO (06:34)
[2024-11-19] MEDS: Apixaban 5 MG TABLET PO ×2 (09:44→21:56)
[2024-11-19 09:45] VITALS: BP 104/53; PULSE 77
[2024-11-19] MEDS: Metoprolol Tartrate 25 MG TABLET PO ×2 (09:45→21:56)
[2024-11-19] MEDS: ARIPiprazole 10 MG TABLET PO (09:45)
[2024-11-19] MEDS: dilTIAZem HCL CD 180 MG CAP.ER.24H 360 MG PO (09:46)
[2024-11-19] MEDS: Digoxin 0.125 MG TABLET PO (09:46)
[2024-11-19] MEDS: Losartan Potassium 50 MG TABLET 100 MG PO (09:47)
[2024-11-19 14:48] VITALS: BP 117/58; PULSE 77; RESP 18; O2SAT 96
--- NOTE | 2024-11-19 19:34 | PC.NURSE ---
pt alert and cooperative, she denies complaint. She had some anxiety about not knowing the plan, Pt was receptive to reassurance and stated decreased anxiety after she know more what to expect. Assessment otherwise benign. plan of care ongoing....
[2024-11-19 21:52] VITALS: BP 123/57; PULSE 72; RESP 18; TEMP 36.1; O2SAT 97
[2024-11-19] MEDS: Melatonin 3 MG TABLET 9 MG PO (21:56)
[2024-11-19] MEDS: Atorvastatin Calcium 20 MG TABLET PO (21:56)
[2024-11-19 22:56] VITALS: RESP 18
[2024-11-20] MEDS: Omeprazole 20 MG CAPSULE.DR PO (05:45)
[2024-11-20 05:51] VITALS: BP 111/56; PULSE 57; RESP 18; TEMP 36.2; O2SAT 98
--- NOTE | 2024-11-20 06:29 | PC.NURSE ---
Assumed care of this patient at 19:00. Patient seen in ED overflow. Pt is A&Ox3, remains disoriented to situation. Pt offers no acute complaints. Covering PA Neha Scanlon presented to the bedside in the evening to address code status. Per PA verbal order to this clinical writer, pt is a FULL CODE. VSS. Pt requested prn melatonin, given with +effect. Pt observed sleeping for the majority of the shift. Breathing observed even and unlabored without distress on room air. Bed alarm on and safety measures in place. Plan of care continues.
[2024-11-20 09:44] VITALS: BP 111/56; PULSE 57
[2024-11-20] MEDS: Losartan Potassium 50 MG TABLET 100 MG PO (09:44)
[2024-11-20] MEDS: Metoprolol Tartrate 25 MG TABLET PO ×2 (09:44→20:40)
[2024-11-20] MEDS: Apixaban 5 MG TABLET PO ×2 (09:44→20:39)
--- NOTE | 2024-11-20 09:44 | MHC.EDTECH ---
patient ambulated to bathroom, AM care done, washed, bed change .RN awre
[2024-11-20 11:13] VITALS: PULSE 54
[2024-11-20] MEDS: ARIPiprazole 10 MG TABLET PO (11:15)
--- NOTE | 2024-11-20 12:01 | PC.NURSE ---
pt alert and cooperative, she denies complaint. HR this am 50's but meds not yet available. rechecked when meds available and HR 54. Pt with irreg/irreg rhythm, asymptomatic. Cardizem and Digoxin held. Citlaly Henning aware.
[2024-11-20 14:41] VITALS: BP 98/37; PULSE 98; RESP 16; TEMP 35.9; O2SAT 98
[2024-11-20 15:42] VITALS: BP 108/58
[2024-11-20 20:26] VITALS: BP 104/50; PULSE 73; RESP 18; TEMP 36; O2SAT 95
[2024-11-20] MEDS: Atorvastatin Calcium 20 MG TABLET PO (20:39)
[2024-11-20] MEDS: Melatonin 3 MG TABLET 9 MG PO (20:39)
[2024-11-21 05:38] VITALS: BP 125/68; PULSE 77; RESP 18; TEMP 36.1; O2SAT 95
[2024-11-21] MEDS: Omeprazole 20 MG CAPSULE.DR PO (06:34)
[2024-11-21 09:05] VITALS: BP 124/53; PULSE 76
[2024-11-21] MEDS: dilTIAZem HCL CD 180 MG CAP.ER.24H 360 MG PO (09:05)
[2024-11-21 09:07] VITALS: BP 124/53; PULSE 76
[2024-11-21] MEDS: Losartan Potassium 50 MG TABLET 100 MG PO (09:07)
[2024-11-21] MEDS: Metoprolol Tartrate 25 MG TABLET PO ×2 (09:07→20:12)
[2024-11-21] MEDS: Digoxin 0.125 MG TABLET PO (09:07)
[2024-11-21] MEDS: Apixaban 5 MG TABLET PO ×2 (09:08→20:12)
[2024-11-21] MEDS: Acetaminophen 325 MG TABLET 1300 MG PO (10:06)
[2024-11-21] MEDS: ARIPiprazole 10 MG TABLET PO (10:07)
--- NOTE | 2024-11-21 10:50 | PC.NURSE ---
Patient alert and cooperative. Pt states 4/10 back pain from bed. Meds given per MAR and pt re-positioned.
--- NOTE | 2024-11-21 12:54 | MHC.CM.ED ---
Addendum entered by Elly Juarez 11/21/24 15:32: No skill per physical therapy. Amisha will speak to Veronika at [facility] about ER assessment. Original Note: Patient remains in ER overflow. Per [facility] will not be able to assess while in the ER. Requesting referral to [facility]. [facility] is not contracted with patient's insurance. Clinical updates sent to Brie at [facility]. Physical therapy has been asked to see patient for updated note for insurance auth. Continue to monitor for d/c needs.
[2024-11-21 14:00] VITALS: BP 106/55; PULSE 67; RESP 16; TEMP 36.2; O2SAT 95
[2024-11-21 20:12] VITALS: BP 107/51; PULSE 72
[2024-11-21] MEDS: Atorvastatin Calcium 20 MG TABLET PO (20:12)
[2024-11-21] MEDS: Melatonin 3 MG TABLET 9 MG PO (20:15)
[2024-11-21 21:36] VITALS: BP 109/44; PULSE 74; RESP 16; TEMP 36.7; O2SAT 93
[2024-11-22] MEDS: Omeprazole 20 MG CAPSULE.DR PO (06:05)
[2024-11-22 06:26] VITALS: BP 110/64; PULSE 62; RESP 16; TEMP 36; O2SAT 98
--- NOTE | 2024-11-22 07:27 | PC.NURSE ---
This RN has assumed care. Pt is sleeping at this time. skin PWD. chest rise noted.
--- NOTE | 2024-11-22 08:23 | MHC.EDTECH ---
this tech assumed care of pt at 0700, pt transfered via supervision / 1 assist to bedside commode, bed bath and clean linens provided, oral care complete and pt ate 100% of breakfast. resting quietly at this time
[2024-11-22 09:14] VITALS: BP 110/64; PULSE 62
[2024-11-22] MEDS: Metoprolol Tartrate 25 MG TABLET PO (09:14)
[2024-11-22] MEDS: Losartan Potassium 50 MG TABLET 100 MG PO (09:14)
[2024-11-22] MEDS: Apixaban 5 MG TABLET PO ×2 (09:14→20:57)
[2024-11-22 09:19] VITALS: BP 110/64; PULSE 62
[2024-11-22] MEDS: ARIPiprazole 10 MG TABLET PO (09:19)
[2024-11-22] MEDS: dilTIAZem HCL CD 180 MG CAP.ER.24H 360 MG PO (09:19)
[2024-11-22] MEDS: Digoxin 0.125 MG TABLET PO (09:19)
--- NOTE | 2024-11-22 11:55 | MHC.CM.ED ---
Patient remains in ER overflow. Per Amisha, she has not heard from [facility] about assessing patient in the ER. Referral made to [facility] at [facility]'s request for private pay placement. Jorge is speaking with Amisha. Waiting to hear if they will accept patient. Continue to monitor for d/c needs.
--- NOTE | 2024-11-22 12:48 | MHC.EDTECH ---
pt ate 100% of lunch tray
--- NOTE | 2024-11-22 13:21 | MHC.EDTECH ---
pt helped off of commode back into bed with very little assistance needed, call mcdermott and bedside table within reach, blankets given.
--- NOTE | 2024-11-22 13:29 | PC.NURSE ---
Pt has been calm and cooperative all orning. UP to commode multi times, eating well, self feed. NAD. No complaints. Oriented to person, place, situation.
[2024-11-22 14:28] VITALS: BP 112/53; PULSE 71; RESP 18; TEMP 36.6; O2SAT 96
--- NOTE | 2024-11-22 16:02 | PC.NURSE ---
Pt c/o soreness on buttocks. 2 areas of shallow open skin noted on buttocks. area around these is red and blanchable. barrier cream applied and patient is right side lying. pt is aware of need to continue to shift weight in bed. Will continue to monitor and reposition.
--- NOTE | 2024-11-22 18:06 | MHC.EDTECH ---
pt given dinner tray, 100% eaten, transferred to [facility], in bed resting at this time
[2024-11-22] MEDS: Melatonin 3 MG TABLET 9 MG PO (20:57)
[2024-11-22] MEDS: Atorvastatin Calcium 20 MG TABLET PO (20:58)
[2024-11-22] MEDS: hydrOXYzine HCL 25 MG TABLET PO (20:58)
[2024-11-22 20:59] VITALS: BP 109/50; PULSE 76
[2024-11-23 05:25] VITALS: BP 131/66; PULSE 74; RESP 16; TEMP 36.6; O2SAT 99
[2024-11-23] MEDS: Omeprazole 20 MG CAPSULE.DR PO (05:30)
[2024-11-23] MEDS: Losartan Potassium 50 MG TABLET 100 MG PO (09:56)
[2024-11-23] MEDS: Apixaban 5 MG TABLET PO ×2 (09:56→20:27)
[2024-11-23] MEDS: dilTIAZem HCL CD 180 MG CAP.ER.24H 360 MG PO (09:56)
[2024-11-23] MEDS: Metoprolol Tartrate 25 MG TABLET PO ×2 (09:56→20:28)
[2024-11-23] MEDS: Digoxin 0.125 MG TABLET PO (09:56)
[2024-11-23] MEDS: ARIPiprazole 10 MG TABLET PO (10:33)
--- NOTE | 2024-11-23 12:11 | PC.NURSE ---
pt had BM in commode. 1 assist. pt has needed frequent reminders about plan of care. she states she wants to return home but is intermittently confused about where she lives. reminded of plan of care. ate breakfast and lunch well.
--- NOTE | 2024-11-23 13:52 | MHC.CM.ED ---
Addendum entered by Elly Juarez 11/23/24 14:44: Patient will transfer to [facility] via BLS tomorrow 11/24 at 10am. Patient, Amisha, Kirsten YEN and Neha ELIZABETH aware. Copy of HCP requested from [facility] Cisneros. Original Note: Patient remains in ER overflow. Received telephone call from Amisha. She is waiting for a call back from [facility] medical care administrator. No update available in [facility] from [facility]. Continue to monitor for d/c needs.
[2024-11-23 14:00] VITALS: BP 112/56; PULSE 76; RESP 16; TEMP 36.3; O2SAT 95
--- NOTE | 2024-11-23 16:21 | MHC.CM.ED ---
HCP from [facility]onel has [employer] listed as agent. He is not allowed to serve as a HCP. [facility]ner[facility] does not have a HCP on file for patient. Met with patient. HCP completed, signed and witnessed. Original given to patient. Copy placed in chart. Patient is aware she will d/c to [facility] tomorrow at 10am. Continue to momitor for d/c needs.
--- NOTE | 2024-11-23 18:06 | PC.NURSE ---
Assumed care of patient at 1330. Patient alert, confused, forgetful but easily redirectable. VSS, RA sats 95%. Reports no pain, able to ambulate to the bathroom, using bedside commode as well. Compliant with meals, using call mcdermott appropriately, able to communicate her needs.
[2024-11-23 20:02] VITALS: BP 116/61; PULSE 75; RESP 17; TEMP 36.4; O2SAT 97
[2024-11-23] MEDS: Melatonin 3 MG TABLET 9 MG PO (20:27)
[2024-11-23] MEDS: hydrOXYzine HCL 25 MG TABLET PO (20:27)
[2024-11-23] MEDS: Atorvastatin Calcium 20 MG TABLET PO (20:28)
--- NOTE | 2024-11-23 20:31 | PC.NURSE ---
pt requested prn med for anxiety and melatonin for sleep. meds given per nov. call mcdermott within reach. nad.
[2024-11-24 04:34] VITALS: BP 107/53; PULSE 61; RESP 20; TEMP 37.1; O2SAT 97
[2024-11-24] MEDS: Omeprazole 20 MG CAPSULE.DR PO (05:38)
[2024-11-24 08:30] VITALS: BP 118/56; PULSE 76
[2024-11-24] MEDS: Losartan Potassium 50 MG TABLET 100 MG PO (08:30)
[2024-11-24] MEDS: Apixaban 5 MG TABLET PO (08:30)
[2024-11-24] MEDS: dilTIAZem HCL CD 180 MG CAP.ER.24H 360 MG PO (08:30)
[2024-11-24] MEDS: Metoprolol Tartrate 25 MG TABLET PO (08:30)
[2024-11-24] MEDS: ARIPiprazole 10 MG TABLET PO (08:31)
[2024-11-24] MEDS: Digoxin 0.125 MG TABLET PO (08:31)
[2024-11-24 10:19] VITALS: BP 118/56; PULSE 76; RESP 20; TEMP 37.1; O2SAT 97
== END 2024-11-24 10:00 | disposition skilled nursing facility (03) ==
PROVIDERS: Physician Assistant; Emergency Provider Emergency Medicine Emergency Medical Services; PCP Physician Assistant Medical
DX: F43.22 Adjustment disorder with anxiety (principal); Z72.89 Other problems related to lifestyle; Z65.8 Other specified problems related to psychosocial circumstances; Z79.899 Other long term (current) drug therapy
CPT/HCPCS: 36415; 80048; 80053; 85025; 97116; 97162; 97530; 99285

== ENCOUNTER → 2024-11-16 10:33 | Outpatient (BNV) | payer BC, SELFPAY | PROVIDERS: Emergency Provider Emergency Medicine Emergency Medical Services; PCP Physician Assistant Medical; Visit Provider Clinical Nurse Specialist Psychiatric/Mental Health, Adult | DX: F43.22 Adjustment disorder with anxiety (principal) | CPT/HCPCS: 99284 ==